=== PATIENT | female | born 1950 | race Caucasian/White ===

== ENCOUNTER → 2018-04-03 11:13 | Outpatient (CLI) | payer MEDICARE, OTHER, SELFPAY ==
--- NOTE | 2018-04-03 10:59 | DI.REPORT_ITS ---
SYMPTOM/DIAGNOSIS: B/L KNEE PAIN BILATERAL KNEES: Weightbearing AP and lateral views were performed. Right knee: There is mild narrowing of the medial femoral tibial joint space. There is spurring from the lateral femoral condyle and lateral tibial plateau. There is mild spurring at the articular aspect of the patella. Left knee: There is moderate narrowing of the lateral femoral tibial joint space, periarticular spurring and sclerosis. A few subchondral cysts are seen. The medial joint space is well maintained. There is mild scarring at the articular aspect of the patella. IMPRESSION: Moderate degenerative changes of the lateral femoral tibial joint of the right knee. Moderate to severe degenerative changes of the lateral femoral tibial joint of the left knee.
== END ==
PROVIDERS: PCP General Practice; Visit Provider Physician Assistant
DX: M25.561 Pain in right knee (principal); M25.562 Pain in left knee; M17.0 Bilateral primary osteoarthritis of knee; G89.29 Other chronic pain
CPT/HCPCS: 73560 ×2; 20610; 99214; J1040

== ENCOUNTER → 2018-11-05 10:10 | Outpatient (BNVA) | payer MEDICARE, OTHER, SELFPAY | PROVIDERS: PCP General Practice; Referring Provider General Practice; Visit Provider Orthopaedic Surgery | DX: M17.11 Unilateral primary osteoarthritis, right knee (principal) | CPT/HCPCS: 99212; 99213 ==

== ENCOUNTER 2018-12-01 08:19 | Day surgery (SDC) | payer MEDICARE, OTHER, SELFPAY ==
--- NOTE | 2018-11-30 17:58 | POEE_ITS ---
History of Present Illness Chief Complaint: Progressive decreased vision, left eye Narrative: The patient is a 68-year old lady who has previously undergone hyperopic laser vision correction in both eyes with subsequent enhancement, including PRK of the left eye. She has noted progressive decreased vision at both distance and near and significant difficulty with glare and halos at night. On examination she was noted to have a significant nuclear cataract, left eye greater than right with visual acuity of 20/30, but with monocular diplopia. The option of cataract surgery was offered to the patient and she wished to proceed. NOTE: The Chief Complaint, HPI, Past Medical History, Past Surgical History, Fa siddhartha History, Social History, Medications, and complete Ophthalmic Exam with detailed Assessment and Plan have already been documented in the patient's outpatient ophthalmic record and are not covered again in detail here. PFSH Medical History Asthma (Chronic) Cataract (Chronic) GERD (gastroesophageal reflux disease) (Chronic) KIRK (obstructive sleep apnea) (Chronic) Surgical History H/O breast augmentation (Acute) Hx of LASIK (Acute) H/O tubal ligation (Chronic) Family History Mother Dementia Father Penile cancer Sister Breast cancer Brother Diabetes Brother Diabetes Social History Smoking/Tobacco Use Status: Former Tobacco Use Drug use: Never Do you feel safe in your relationship?: Yes Meds Home Medications Medication Instructions Recorded Confirmed Type lorazepam 0.5 mg PO PRN PRN 12/01/14 11/26/18 History Centrum Silver 1 ea PO DAILY 08/02/15 11/26/18 History Coral Calcium 1 ea PO DAILY 08/02/15 11/26/18 History Probiotic 1 ea PO DAILY 08/02/15 11/26/18 History coenzyme Q10 [CoQ-10] 30 mg PO DAILY 08/02/15 11/26/18 History cetirizine [Allergy Relief 10 mg PO DAILY 01/24/17 11/26/18 History (cetirizine)] valacyclovir [Valtrex] 1,000 mg PO PRN PRN #20 tab-cap 03/12/17 11/26/18 History Ca carb-Ca gluc-Mg ox-Mg gluco 1 tab PO DAILY 11/26/18 11/26/18 History [Calcium Magnesium] Electrolyte Suppliment 1 ea PO DAILY 11/26/18 History Pancreat-Bet AUy-zsw-ksjn-pap 1 cap PO DAILY 11/26/18 11/26/18 History [Super Enzyme] omega 6-seb-scm-fish oil [Fish Oil] 1 cap PO DAILY 11/26/18 11/26/18 History Allergies Allergy/AdvReac Type Severity Reaction Status Date / Time No Known Allergies Allergy Unverified 11/05/18 10:18 Exam OCULAR EXAM:: Most recent ocular examination is significant for corrected visual acuity of 20/20 OD, 20/30 OS. Intraocular pressure is 11 OD, 12 OS. Extraocular motility is normal. Pupils equal, round, and reactive without afferent pupillary defect slit-lamp examination is significant for pupils dilating to 6 mm OU. 2+ nuclear cataract OD, 3+ nuclear cataract OS. Dilated funduscopic examination is significant for disc cupping of 0.3 OU with good color. The optic nerves have good perfusion and normal color. The retinal vasculature is normal without significant tortuosity or abnormality. The maculas are normal in appearance with normal contour and foveal reflex appropriate for age. The peripheral retina and vitreous are normal. BRIGHTNESS ACUITY TESTING (BAT):: Brightness acuity testing of the left eye off is 20/30. Low is 20/40. Medium is 20/40. High is 20/60. Assessment and Plan (1) Nuclear sclerotic cataract of left eye: Current visit: No Status: Acute Assessment: Visually significant cataract, left eye. Plan: Cataract extraction with intraocular lens implantation, left eye Note: NOTE:: The details of the planned surgery, including the risks, indications,limitations,expectations,outcome and possible complications were explained to the patient. The patient understands the complications including, but not limited to: infection, hemorrhage, posterior dislocation of the lens or nuclear fragments which may require the intervention of a vitreoretinal surgeon, possible loss of the eye, or from anesthetic complications. The patient has been made aware of the option of not having surgery, that vision following surgery may not be equal to that prior to surgery, and that the planned surgery may not achieve the intended results. Following this discussion, which the patient appeared to understand, the patient wishes to proceed with cataract surgery with lens implantation of the affected eye to improve and maximize vision.
--- NOTE | 2018-11-30 18:00 | W.PM.DSUDISC ---
Discharge Plan Disposition Patient Disposition: HOME Condition: Stable Discharge Details Attending Provider: Irving Molina Primary Care Provider: Tray Marley Home Meds and New Rx's Prescriptions: No Action Centrum Silver 1 EACH tablet 1 ea PO DAILY RF: 0 coenzyme Q10 [CoQ-10] 30 MG capsule 30 mg PO DAILY RF: 0 Probiotic 1 EACH capsule 1 ea PO DAILY RF: 0 valacyclovir [Valtrex] 1,000 MG tablet 1,000 mg PO PRN PRNQty: 20 RF: 2 lorazepam 0.5 MG tablet 0.5 mg PO PRN PRNRF: 0 cetirizine [Allergy Relief (cetirizine)] 10 MG tablet 10 mg PO DAILY RF: 0 Super Enzyme [id number] mg Capsule 1 cap PO DAILY RF: 0 Electrolyte Suppliment 1 ea PO DAILY RF: 0 omega 3-vbs-nmp-fish oil [Fish Oil] 1,000 mg (120 mg-180 mg) Capsule 1 cap PO DAILY RF: 0 Calcium Magnesium 500 mg calcium -250 mg Tablet 1 tab PO DAILY RF: 0 Discharge Instructions Stand Alone Forms: Post-op Topical Cataract, Jamaal Mckeon (DSU) Discharge Orders Discharge Orders: Discharge Order (Routine); Ordered 12/01/18 Ordered By: Irving Molina DS: Diagnosis Discharge Diagnosis (1) Nuclear sclerotic cataract of left eye: Status: Resolved (2) Status post cataract extraction and insertion of intraocular lens of left eye: Status: Chronic
--- NOTE | 2018-11-30 18:03 | PDOC.DSDIS_ITS ---
Discharge Plan Disposition Patient Disposition: HOME Condition: Stable Discharge Details Attending Provider: Irving Molina Primary Care Provider: Tray Marley Home Meds and New Rx's Prescriptions: No Action Centrum Silver 1 EACH tablet 1 ea PO DAILY RF: 0 coenzyme Q10 [CoQ-10] 30 MG capsule 30 mg PO DAILY RF: 0 Probiotic 1 EACH capsule 1 ea PO DAILY RF: 0 valacyclovir [Valtrex] 1,000 MG tablet 1,000 mg PO PRN PRNQty: 20 RF: 2 lorazepam 0.5 MG tablet 0.5 mg PO PRN PRNRF: 0 cetirizine [Allergy Relief (cetirizine)] 10 MG tablet 10 mg PO DAILY RF: 0 Super Enzyme [id number] mg Capsule 1 cap PO DAILY RF: 0 Electrolyte Suppliment 1 ea PO DAILY RF: 0 omega 4-iix-uvw-fish oil [Fish Oil] 1,000 mg (120 mg-180 mg) Capsule 1 cap PO DAILY RF: 0 Calcium Magnesium 500 mg calcium -250 mg Tablet 1 tab PO DAILY RF: 0 Discharge Instructions Stand Alone Forms: Post-op Topical Cataract, Jamaal Mckeon (DSU) Discharge Orders Discharge Orders: Discharge Order (Routine); Ordered 12/01/18 Ordered By: Irving Molina DS: Diagnosis Discharge Diagnosis (1) Nuclear sclerotic cataract of left eye: Status: Resolved (2) Status post cataract extraction and insertion of intraocular lens of left eye: Status: Chronic
--- NOTE | 2018-11-30 18:03 | W.PM.OP ---
Date of service: 12/01/18 Operative Note PRE-OP DIAGNOSIS: Cataract, left eye POST-OP DIAGNOSIS: same PROCEDURE: Cataract extraction using phacoemulsification with intraocular lens implant, left eye SURGEON: Irving Molina ANESTHESIA: MAC and local (sub-tenon's anesthetic infiltration) PATHOLOGY: none sent COMPLICATIONS: None Patient was transported to: same day Patient's condition: stable Implants: Sreedhar [employer] Sreed[employer] / [employer] Tecnis [id number] Indications: Progressive decreased vision due to cataract, left eye Procedure Description: CATARACT SURGERY OPERATIVE REPORT PREOPERATIVE DIAGNOSIS: Nuclear cataract, left eye, symptomatic Status post multiple corneal laser refractive procedures POSTOPERATIVE DIAGNOSIS: Same OPERATION: Cataract extraction using phacoemulsification with posterior chamber intraocular lens implant, left eye. IOL: IOL Jukebox Routeman/Model: [employer] / WESLY AR40e IOL Power: + 21.0 diopters IOL Serial Number: [id number] Optic Diameter: 6.0mm Haptic/Overall Diameter: 13.0mm PHACO INFO: Jonathan KnightHavenon Vision System with OZil and Active Fluidics Cumulative Dispersed Energy (CDE): 16.61 seconds SURGEON: Irving Molina MD, SUSAN ANESTHESIA: Monitored Anesthesia Care (MAC), with local sub-tenon's anesthetic infiltration COMPLICATIONS: None SPECIMENS: None INDICATIONS FOR PROCEDURE: The patient is a 68-year-old lady with history of having undergone hyperopic Lasix in the left eye, followed by PRK. She has developed a significant nuclear cataract in the left eye and desires cataract surgery and attempt to improve and maximize her vision PROCEDURE: The correct surgical eye was identified and marked as the left eye and the pupil was dilated in the preoperative area using mydriatics and cycloplegics. The dilated pupil size was 7.0 mm. Oral sedation was administered in the form of an Imprimis MKO Melt (midazolam 3mg/ketamine 25mg/ondansetron 2mg). The patient was brought to the operating room where cardiopulmonary monitoring was instituted and surgical time-out was performed, confirming the correct operative eye and IOL power. Topical anesthesia was administered and ophthalmic povidone-iodine 5% was instilled into the conjunctival fornices. Lidocaine gel was applied to the cornea and the geoff-ocular area was prepped with Betadine 10% solution and draped in the usual sterile fashion for intraocular surgery, including an aperture drape. A Tegaderm transparent film dressing was cut in half and used to cover the lashes and lid margins. Care was taken to sequester the lashes and lid margins under the Tegaderm dressing. A lid speculum was placed between the lids of the operative eye and the Xiomy-Berna operating microscope was maneuvered into position. Patti scissors were then used to make a conjunctival buttonhole approximately 6mm posterior to the limbus in the inferonasal quadrant. Blunt dissection was carried out to expose bare sclera, and a blunt-tipped sub-tenon?s anesthesia cannula was introduced and passed posteriorly along the globe where non-preserved plain lidocaine was injected into posterior sub-Tenon?s space. A sideport knife was used to make a paracentesis port superior/superiortemporal, and the anterior chamber was filled with Healon GV. A 2.4mm keratome knife was used to create a half-thickness groove at the limbus and then to construct a three-plane near-clear corneal tunnel extending 2.0mm into clear cornea in the temporal position. . A flap was raised on the anterior capsule and capsulorhexis forceps were used to complete a continuous curvilinear capsulorhexis of 5.5 mm. Balanced salt solution was then used to perform cortical cleaving hydrodissection and nuclear hydrodelineation until the lens could be freely rotated within the capsular bag. The lens nucleus was then disassembled and removed within the capsular bag and iris plane using phacoemulsification. Residual cortical material was removed using the 45-degree angled silicone I/A tip with 0.3mm port. The posterior capsule was carefully polished to remove as much residual lens epithelial cells as safely possible. The capsular bag was then inflated and the anterior chamber deepened with viscoelastic. The phaco incision was enlarged slightly the lens implant described above was inserted into the capsular bag using the WESLY [place] Injector. A Kuglen hook was used to dial the IOL into position. Residual viscoelastic was then removed first from posterior to the IOL, then from the anterior chamber using the I/A handpiece. The lens implant was noted to center nicely within the capsular bag. The incisions were stromally hydrated, and the anterior chamber was reformed using BSS. Then 0.4cc of moxifloxacin 1.5mg/ml were injected into the capsular bag and anterior chamber. The incisions were checked with a Weck spear and found to be secure. Several drops of ophthalmic povidone-iodine 5% were then applied to the eye followed by two drops of Imprimis combination gatifloxacin/dexamethasone solution. The drapes were removed and a clear plastic protective eye shield was placed over the eye. The patient was then returned to Same Day Surgery in stable condition.
--- NOTE | 2018-11-30 18:06 | ROE_ITS ---
Date of service: 12/01/18 Operative Note PRE-OP DIAGNOSIS: Cataract, left eye POST-OP DIAGNOSIS: same PROCEDURE: Cataract extraction using phacoemulsification with intraocular lens implant, left eye SURGEON: Irving Molina ANESTHESIA: MAC and local (sub-tenon's anesthetic infiltration) PATHOLOGY: none sent COMPLICATIONS: None Patient was transported to: same day Patient's condition: stable Implants: Sreedhar and Sreedhar Vision / [employer] Tecnis [id number] Indications: Progressive decreased vision due to cataract, left eye Procedure Description: CATARACT SURGERY OPERATIVE REPORT PREOPERATIVE DIAGNOSIS: Nuclear cataract, left eye, symptomatic Status post multiple corneal laser refractive procedures POSTOPERATIVE DIAGNOSIS: Same OPERATION: Cataract extraction using phacoemulsification with posterior chamber intraocular lens implant, left eye. IOL: IOL Imaging Administrator/Model: [employer]Think[employer] / WESLY AR40e IOL Power: + 21.0 diopters IOL Serial Number: [id number] Optic Diameter: 6.0mm Haptic/Overall Diameter: 13.0mm PHACO INFO: Jonathan [employer] Vision System with OZil and Active Fluidics Cumulative Dispersed Energy (CDE): 16.61 seconds SURGEON: Irving Molina MD, SUSAN ANESTHESIA: Monitored Anesthesia Care (MAC), with local sub-tenon's anesthetic infiltration COMPLICATIONS: None SPECIMENS: None INDICATIONS FOR PROCEDURE: The patient is a 68-year-old lady with history of having undergone hyperopic Lasix in the left eye, followed by PRK. She has developed a significant nuclear cataract in the left eye and desires cataract surgery and attempt to improve and maximize her vision PROCEDURE: The correct surgical eye was identified and marked as the left eye and the pupil was dilated in the preoperative area using mydriatics and cycloplegics. The dilated pupil size was 7.0 mm. Oral sedation was administered in the form of an Imprimis MKO Melt (midazolam 3mg/ketamine 25mg/ondansetron 2mg). The patient was brought to the operating room where cardiopulmonary monitoring was instituted and surgical time-out was performed, confirming the correct operative eye and IOL power. Topical anesthesia was administered and ophthalmic povidone-iodine 5% was instilled into the conjunctival fornices. Lidocaine gel was applied to the cornea and the geoff-ocular area was prepped with Betadine 10% solution and draped in the usual sterile fashion for intraocular surgery, including an aperture drape. A Tegaderm transparent film dressing was cut in half and used to cover the lashes and lid margins. Care was taken to sequester the lashes and lid margins under the Tegaderm dressing. A lid speculum was placed between the lids of the operative eye and the Xiomy-Berna operating microscope was maneuv ered into position. Patti scissors were then used to make a conjunctival buttonhole approximately 6mm posterior to the limbus in the inferonasal quadrant. Blunt dissection was carried out to expose bare sclera, and a blunt-tipped sub-tenon?s anesthesia cannula was introduced and passed posteriorly along the globe where non- preserved plain lidocaine was injected into posterior sub-Tenon?s space. A sideport knife was used to make a paracentesis port superior/superiortemporal, and the anterior chamber was filled with Healon GV. A 2.4mm keratome knife was used to create a half-thickness groove at the limbus and then to construct a three-plane near-clear corneal tunnel extending 2.0mm into clear cornea in the temporal position. . A flap was raised on the anterior capsule and capsulorhexis forceps were used to complete a continuous curvilinear capsulorhexis of 5.5 mm. Balanced salt solution was then used to perform cortical cleaving hydrodissection and nuclear hydrodelineation until the lens could be freely rotated within the capsular bag. The lens nucleus was then disassembled and removed within the capsular bag and iris plane using phacoemulsification. Residual cortical material was removed using the 45-degree angled silicone I/A tip with 0.3mm port. The posterior capsule was carefully polished to remove as much residual lens epithelial cells as safely possible. The capsular bag was then inflated and the anterior chamber deepened with viscoelastic. The phaco incision was enlarged slightly the lens implant described above was inserted into the capsular bag using the WESLY [place] Injector. A Kuglen hook was used to dial the IOL into position. Residual viscoelastic was then removed first from posterior to the IOL, then from the anterior chamber using the I/A handpiece. The lens implant was noted to center nicely within the capsular bag. The incisions were stromally hydrated, and the anterior chamber was reformed using BSS. Then 0.4cc of moxifloxacin 1.5mg/ml were injected into the capsular bag and anterior chamber. The incisions were checked with a Weck spear and found to be secure. Several drops of ophthalmic povidone-iodine 5% were then applied to the eye followed by two drops of Imprimis combination gatifloxacin/dexamethasone solution. The drapes were removed and a clear plastic protective eye shield was placed over the eye. The patient was then returned to Same Day Surgery in stable condition.
[2018-12-01 08:44] VITALS: BP 106/65; PULSE 93; RESP 16; TEMP 36.6; O2SAT 95
[2018-12-01] MEDS: Tetracaine 0.5% 4 ML BTL OS ×4 (08:54→09:53)
[2018-12-01] MEDS: Tropicam./Phenyleph. (1/2.5%) 5 ML BTL OS ×3 (08:54→09:04)
[2018-12-01] MEDS: Lidocaine 2% Jelly 6 ML SYR (09:53)
[2018-12-01] MEDS: Povidone-Iodine Ophth 30 ML BTL ×2 (09:53→10:25)
[2018-12-01] MEDS: Balanced Salt Soln.-PLUS 500 ML BAG (10:00)
[2018-12-01] MEDS: Lidocaine 1% Pres-Free 5 ML VIAL (10:00)
[2018-12-01 10:59] VITALS: BP 104/63; PULSE 85; RESP 16; TEMP 36.4; O2SAT 94
== END 2018-12-01 10:58 | disposition home or self-care (01) ==
LOC: SUR 08:20
PROVIDERS: PCP General Practice; Visit Provider Ophthalmology
PROC: (CPT 66984; principal; 2018-12-01 10:30)
DX: H25.12 Age-related nuclear cataract, left eye (principal); Z98.890 Other specified postprocedural states; K21.9 Gastro-esophageal reflux disease without esophagitis; G47.33 Obstructive sleep apnea (adult) (pediatric)
CPT/HCPCS: 66984; V2632

== ENCOUNTER 2018-12-15 07:35 | Day surgery (SDC) | payer MEDICARE, OTHER, SELFPAY ==
--- NOTE | 2018-12-14 15:39 | W.PIPPEYE ---
History of Present Illness Chief Complaint: Progressive decreased vision, right eye Narrative: The patient is a 68-year-old lady with previous history of having undergone bilateral hyperopic Lasix with subsequent enhancement. She has developed significant bilateral nuclear cataracts and desires cataract surgery and attempt to improve and maximize her vision. She underwent cataract surgery in the left eye on 12/01/2018. Regaining uncorrected vision of 20/30 in the left eye. She now presents for cataract surgery in the right eye. NOTE: The Chief Complaint, HPI, Past Medical History, Past Surgical History, Family History, Social History, Medications, and complete Ophthalmic Exam with detailed Assessment and Plan have already been documented in the patient's outpatient ophthalmic record and are not covered again in detail here. [facility] Medical History Asthma (Chronic) Cataract (Chronic) GERD (gastroesophageal reflux disease) (Chronic) KIRK (obstructive sleep apnea) (Chronic) Surgical History Status post cataract extraction and insertion of intraocular lens of left eye (Chronic 12/01/18) H/O breast augmentation (Acute) Hx of LASIK (Acute) H/O tubal ligation (Chronic) Family History Mother Dementia Father Penile cancer Sister Breast cancer Brother Diabetes Brother Diabetes Social History Smoking/Tobacco Use Status: Current-Occasional Drug use: Never Do you feel safe in your relationship?: Yes Meds Home Medications Medication Instructions Recorded Confirmed Type lorazepam 0.5 mg PO PRN PRN 12/01/14 12/01/18 History Centrum Silver 1 ea PO DAILY 08/02/15 12/01/18 History Probiotic 1 ea PO DAILY 08/02/15 12/01/18 History coenzyme Q10 [CoQ-10] 30 mg PO DAILY 08/02/15 12/01/18 History cetirizine [Allergy Relief 10 mg PO DAILY 01/24/17 12/01/18 History (cetirizine)] valacyclovir [Valtrex] 1,000 mg PO PRN PRN #20 tab-cap 03/12/17 12/01/18 History Ca carb-Ca gluc-Mg ox-Mg gluco 1 tab PO DAILY 11/26/18 12/01/18 History [Calcium Magnesium] Electrolyte Suppliment 1 ea PO DAILY 11/26/18 12/01/18 History Pancreat-Bet DRa-gjr-ibcf-pap 1 cap PO DAILY 11/26/18 12/01/18 History [Super Enzyme] omega 6-uwz-aty-fish oil [Fish Oil] 1 cap PO DAILY 11/26/18 12/01/18 History Allergies Allergy/AdvReac Type Severity Reaction Status Date / Time No Known Allergies Allergy Unverified 12/01/18 08:36 Exam OCULAR EXAM:: Most recent ocular examination is significant for best corrected vision of 20/20 OD, 20/30 OS. Intraocular pressure is 11 OD, 12 OS. Extraocular motility is normal. Pupils equal, round, and reactive without afferent pupillary defect slit-lamp examination is significant for pupils dilating to 6 mm OU. 2+ nuclear cataract OD. Well-positioned PCIOL OS with clear posterior capsule. Funduscopic examination is significant for disc cupping of 0.3 OU with normal vessels. The optic nerves have good perfusion and normal color. The retinal vasculature is normal without significant tortuosity or abnormality. The maculas are normal in appearance with normal contour and foveal reflex appropriate for age. The peripheral retina and vitreous are normal. BRIGHTNESS ACUITY TESTING (BAT):: Brightness acuity testing of the right eye off is 20/20. Low is 20/20. Medium is 20/20. High is 20/20. Assessment and Plan (1) Nuclear sclerotic cataract of right eye: Current visit: No Status: Acute Assessment: Visually significant cataract, right eye. Plan: Cataract extraction with intraocular lens implantation, right eye Note: NOTE:: The details of the planned surgery, including the risks, indications,limitations,expectations,outcome and possible complications were explained to the patient. The patient understands the complications including, but not limited to: infection, hemorrhage, posterior dislocation of the lens or nuclear fragments which may require the intervention of a vitreoretinal surgeon, possible loss of the eye, or from anesthetic complications. The patient has been made aware of the option of not having surgery, that vision following surgery may not be equal to that prior to surgery, and that the planned surgery may not achieve the intended results. Following this discussion, which the patient appeared to understand, the patient wishes to proceed with cataract surgery with lens implantation of the affected eye to improve and maximize vision.
--- NOTE | 2018-12-14 15:42 | POEE_ITS ---
History of Present Illness Chief Complaint: Progressive decreased vision, right eye Narrative: The patient is a 68-year-old lady with previous history of having undergone bilateral hyperopic Lasix with subsequent enhancement. She has developed significant bilateral nuclear cataracts and desires cataract surgery a nd attempt to improve and maximize her vision. She underwent cataract surgery in the left eye on 12/01/2018. Regaining uncorrected vision of 20/30 in the left eye. She now presents for cataract surgery in the right eye. NOTE: The Chief Complaint, HPI, Past Medical History, Past Surgical History, Family History, Social History, Medications, and complete Ophthalmic Exam with detailed Assessment and Plan have already been documented in the patient's outpatient ophthalmic record and are not covered again in detail here. [facility] Medical History Asthma (Chronic) Cataract (Chronic) GERD (gastroesophageal reflux disease) (Chronic) KIRK (obstructive sleep apnea) (Chronic) Surgical History Status post cataract extraction and insertion of intraocular lens of left eye (Chronic 12/01/18) H/O breast augmentation (Acute) Hx of LASIK (Acute) H/O tubal ligation (Chronic) Family History Mother Dementia Father Penile cancer Sister Breast cancer Brother Diabetes Brother Diabetes Social History Smoking/Tobacco Use Status: Current-Occasional Drug use: Never Do you feel safe in your relationship?: Yes Meds Home Medications Medication Instructions Recorded Confirmed Type lorazepam 0.5 mg PO PRN PRN 12/01/14 12/01/18 History Centrum Silver 1 ea PO DAILY 08/02/15 12/01/18 History Probiotic 1 ea PO DAILY 08/02/15 12/01/18 History coenzyme Q10 [CoQ-10] 30 mg PO DAILY 08/02/15 12/01/18 History cetirizine [Allergy Relief 10 mg PO DAILY 01/24/17 12/01/18 History (cetirizine)] valacyclovir [Valtrex] 1,000 mg PO PRN PRN #20 tab-cap 03/12/17 12/01/18 History Ca carb-Ca gluc-Mg ox-Mg gluco 1 tab PO DAILY 11/26/18 12/01/18 History [Calcium Magnesium] Electrolyte Suppliment 1 ea PO DAILY 11/26/18 12/01/18 History Pancreat-Bet BZq-xkt-tcvc-pap 1 cap PO DAILY 11/26/18 12/01/18 History [Super Enzyme] omega 0-hij-gnk-fish oil [Fish Oil] 1 cap PO DAILY 11/26/18 12/01/18 History Allergies Allergy/AdvReac Type Severity Reaction Status Date / Time No Known Allergies Allergy Unverified 12/01/18 08:36 Exam OCULAR EXAM:: Most recent ocular examination is significant for best corrected vision of 20/20 OD, 20/30 OS. Intraocular pressure is 11 OD, 12 OS. Extraocular motility is normal. Pupils equal, round, and reactive without afferent pupillary defect slit-lamp examination is significant for pupils dilating to 6 mm OU. 2+ nuclear cataract OD. Well-positioned PCIOL OS with clear posterior capsule. Funduscopic examination is significant for disc cupping of 0.3 OU with normal vessels. The optic nerves have good perfusion and normal color. The retinal vasculature is normal without significant tortuosity or abnormality. The maculas are normal in appearance with normal contour and foveal reflex appropriate for age. The peripheral retina and vitreous are normal. BRIGHTNESS ACUITY TESTING (BAT):: Brightness acuity testing of the right eye off is 20/20. Low is 20/20. Medium is 20/20. High is 20/20. Assessment and Plan (1) Nuclear sclerotic cataract of right eye: Current visit: No Status: Acute Assessment: Visually significant cataract, right eye. Plan: Cataract extraction with intraocular lens implantation, right eye Note: NOTE:: The details of the planned surgery, including the risks, indications,limitations,expectations,outcome and possible complications were explained to the patient. The patient understands the complications including, but not limited to: infection, hemorrhage, posterior dislocation of the lens or nuclear fragments which may require the intervention of a vitreoretinal surgeon, possible loss of the eye, or from anesthetic complications. The patient has been made aware of the option of not having surgery, that vision following surgery may not be equal to that prior to surgery, and that the planned surgery may not achieve the intended results. Following this discussion, which the patient appeared to understand, the patient wishes to proceed with cataract surgery with lens implantation of the affected eye to improve and maximize vision.
[2018-12-15 08:05] VITALS: BP 127/70; PULSE 80; RESP 16; TEMP 36.4; O2SAT 96
[2018-12-15] MEDS: Tropicam./Phenyleph. (1/2.5%) 5 ML BTL OD ×3 (08:13→08:24)
[2018-12-15] MEDS: Tetracaine 0.5% 4 ML BTL OD ×4 (08:13→09:03)
--- NOTE | 2018-12-15 08:59 | W.PM.DSUDISC ---
Discharge Plan Disposition Patient Disposition: HOME Condition: Stable Discharge Details Attending Provider: Irving Molina Primary Care Provider: Tray Marley Home Meds and New Rx's Prescriptions: No Action Centrum Silver 1 EACH tablet 1 ea PO DAILY RF: 0 coenzyme Q10 [CoQ-10] 30 MG capsule 30 mg PO DAILY RF: 0 Probiotic 1 EACH capsule 1 ea PO DAILY RF: 0 valacyclovir [Valtrex] 1,000 MG tablet 1,000 mg PO PRN PRNQty: 20 RF: 2 lorazepam 0.5 MG tablet 0.5 mg PO PRN PRNRF: 0 cetirizine [Allergy Relief (cetirizine)] 10 MG tablet 10 mg PO DAILY RF: 0 Super Enzyme [id number] mg Capsule 1 cap PO DAILY RF: 0 Electrolyte Suppliment 1 ea PO DAILY RF: 0 omega 0-okj-ayf-fish oil [Fish Oil] 1,000 mg (120 mg-180 mg) Capsule 1 cap PO DAILY RF: 0 Calcium Magnesium 500 mg calcium -250 mg Tablet 1 tab PO DAILY RF: 0 Discharge Instructions Stand Alone Forms: Post-op Topical Cataract, Jamaal Mckeon (DSU) Discharge Orders Discharge Orders: Discharge Order (Routine); Ordered 12/15/18 Ordered By: Irving Molina DS: Diagnosis Discharge Diagnosis (1) Nuclear sclerotic cataract of right eye: Status: Resolved (2) Status post cataract extraction and insertion of intraocular lens of right eye: Status: Chronic
[2018-12-15] MEDS: Povidone-Iodine Ophth 30 ML BTL (09:03)
[2018-12-15] MEDS: Lidocaine 2% Jelly 6 ML SYR (09:03)
[2018-12-15] MEDS: Balanced Salt Soln.-PLUS 500 ML BAG (09:07)
[2018-12-15] MEDS: Lidocaine 1% Pres-Free 5 ML VIAL (09:09)
--- NOTE | 2018-12-15 09:39 | W.PM.OP ---
Date of service: 12/15/18 Time of Service: 09:40 Operative Note PRE-OP DIAGNOSIS: Cataract, right eye PROCEDURE: Cataract extraction using phacoemulsification with intraocular lens implant, right eye SURGEON: Irving Molina ANESTHESIA: MAC and local (sub-tenon's anesthetic infiltration) ESTIMATED BLOOD LOSS: 0 PATHOLOGY: none sent COMPLICATIONS: None Patient was transported to: same day Patient's condition: stable Implants: Sreedhar and Sreed[employer] / [employer] Tecnis ZCB00 intraocular lens Indications: Progressive decreased vision due to cataract, right eye Procedure Description: CATARACT SURGERY OPERATIVE REPORT PREOPERATIVE DIAGNOSIS: Nuclear cataract, right eye Status post corneal laser refractive surgery POSTOPERATIVE DIAGNOSIS: Same OPERATION: Cataract extraction using phacoemulsification with posterior chamber intraocular lens implant, right eye. 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 She has developed symptomatic nuclear cataract in both eyes and desires cataract surgery and attempt to improve and maximize her vision. She has already undergone cataract surgery in her left eye. She now presents for cataract surgery of the right eye. PROCEDURE: The correct surgical eye was identified and marked as the right eye and the pupil was dilated in the preoperative area using mydriatics and cycloplegics. The dilated pupil size was 7.0 mm. Oral sedation was administered in the form of an Imprimis MKO Melt (midazolam 3mg/ketamine 25mg/ondansetron 2mg). The patient was brought to the operating room where cardiopulmonary monitoring was instituted and surgical time-out was performed, confirming the correct operative eye and IOL power. Topical anesthesia was administered and ophthalmic povidone-iodine 5% was instilled into the conjunctival fornices. Lidocaine gel was applied to the cornea and the geoff-ocular area was prepped with Betadine 10% solution and draped in the usual sterile fashion for intraocular surgery, including an aperture drape. A Tegaderm transparent film dressing was cut in half and used to cover the lashes and lid margins. Care was taken to sequester the lashes and lid margins under the Tegaderm dressing. A lid speculum was placed between the lids of the operative eye and the Xiomy-Berna operating microscope was maneuvered into position. Patti scissors were then used to make a conjunctival buttonhole approximately 6mm posterior to the limbus in the inferonasal quadrant. Blunt dissection was carried out to expose bare sclera, and a blunt-tipped sub-tenon?s anesthesia cannula was introduced and passed posteriorly along the globe where non-preserved plain lidocaine was injected into posterior sub-Tenon?s space. A sideport knife was used to make a paracentesis port inferiortemporally, and the anterior chamber was filled with Healon GV. A 2.4mm keratome knife was used to create a half-thickness groove at the limbus and then to construct a three-plane near-clear corneal tunnel extending 2.0mm into clear cornea in the superiortemporal position. . A flap was raised on the anterior capsule and capsulorhexis forceps were used to complete a continuous curvilinear capsulorhexis of 5.0 mm. Balanced salt solution was then used to perform cortical cleaving hydrodissection and nuclear hydrodelineation until the lens could be freely rotated within the capsular bag. The lens nucleus was then disassembled and removed within the capsular bag and iris plane using phacoemulsification. Residual cortical material was removed using the I/A handpiece. The posterior capsule was carefully polished to remove as much residual lens epithelial cells as safely possible. The capsular bag was then inflated and the anterior chamber deepened with viscoelastic. The lens implant described above was inserted into the capsular bag using the WESLY [place] Injector. A Kuglen hook was used to dial the IOL into position. Residual viscoelastic was then removed first from posterior to the IOL, then from the anterior chamber using the I/A handpiece. The lens implant was noted to center nicely within the capsular bag. The incisions were stromally hydrated, and the anterior chamber was reformed using BSS. Then 0.4cc of moxifloxacin 1.5mg/ml were injected into the capsular bag and anterior chamber. The incisions were checked with a Weck spear and found to be secure. Several drops of ophthalmic povidone-iodine 5% were then applied to the eye followed by two drops of Imprimis combination gatifloxacin/dexamethasone solution. The drapes were removed and a clear plastic protective eye shield was placed over the eye. The patient was then returned to Same Day Surgery in stable condition.
--- NOTE | 2018-12-15 09:43 | ROE_ITS ---
Date of service: 12/15/18 Time of Service: 09:40 Operative Note PRE-OP DIAGNOSIS: Cataract, right eye PROCEDURE: Cataract extraction using phacoemulsification with intraocular lens implant, right eye SURGEON: Irving Molina ANESTHESIA: MAC and local (sub-tenon's anesthetic infiltration) ESTIMATED BLOOD LOSS: 0 PATHOLOGY: none sent COMPLICATIONS: None Patient was transported to: same day Patient's condition: stable Implants: Sreedhar and Sreedhar Vision / [employer] Tecnis ZCB00 intraocular lens Indications: Progressive decreased vision due to cataract, right eye Procedure Description: CATARACT SURGERY OPERATIVE REPORT PREOPERATIVE DIAGNOSIS: Nuclear cataract, right eye Status post corneal laser refractive surgery POSTOPERATIVE DIAGNOSIS: Same OPERATION: Cataract extraction using phacoemulsification with posterior chamber intraocular lens implant, right eye. IOL: IOL Lard Maker/Model: J&J Vision / WESLY Tecnis ZCB00 IOL Power: + 24.0 diopters IOL Serial Number: [id number] Optic Diameter: 6.0mm Haptic/Overall Diameter: 13.0mm PHACO INFO: Jonathan [employer] Vision System with OZil and Active Fluidics Cumulative Dispersed Energy (CDE): 14.34 seconds SURGEON: Irving Molina MD, SUSAN ANESTHESIA: Monitored Anesthesia Care (MAC), with local sub-tenon's anesthetic infiltration COMPLICATIONS: None SPECIMENS: None INDICATIONS FOR PROCEDURE: The patient is a 68-year-old lady with history of having undergone multiple corneal laser refractive surgery's including hyperopic Lasix. She has developed symptomatic nuclear cataract in both eyes and desires cataract surgery and attempt to improve and maximize her vision. She has already undergone cataract surgery in her left eye. She now presents for cataract surgery of the right eye. PROCEDURE: The correct surgical eye was identified and marked as the right eye and the pupil was dilated in the preoperative area using mydriatics and cycloplegics. The dilated pupil size was 7.0 mm. Oral sedation was administered in the form of an Imprimis MKO Melt (midazolam 3mg/ketamine 25mg/ondansetron 2mg). The patient was brought to the operating room where cardiopulmonary monitoring was instituted and surgical time-out was performed, confirming the correct operative eye and IOL power. Topical anesthesia was administered and ophthalmic povidone-iodine 5% was instilled into the conjunctival fornices. Lidocaine gel was applied to the cornea and the geoff-ocular area was prepped with Betadine 10% solution and draped in the usual sterile fashion for intraocular surgery, including an aperture drape. A Tegaderm transparent film dressing was cut in half and used to cover the lashes and lid margins. Care was taken to sequester the lashes and lid margins under the Tegaderm dressing. A lid speculum was placed between the lids of the operative eye and the Xiomy-Berna operating microscope was maneuvered into position. Patti scissors were then used to make a conjunctival buttonhole approximately 6mm posterior to the limbus in the inferonasal quadrant. Blunt dissection was carried out to expose bare sclera, and a blunt-tipped sub-tenon?s anesthesia cannula was introduced and passed posteriorly along the globe where non- preserved plain lidocaine was injected into posterior sub-Tenon?s space. A sideport knife was used to make a paracentesis port inferiortemporally, and the anterior chamber was filled with Healon GV. A 2.4mm keratome knife was used to create a half-thickness groove at the limbus and then to construct a three-plane near-clear corneal tunnel extending 2.0mm into clear cornea in the superiortemporal position. . A flap was raised on the anterior capsule and capsulorhexis forceps were used to complete a continuous curvilinear capsulorhexis of 5.0 mm. Balanced salt solution was then used to perform cortical cleaving hydrodissection and nuclear hydrodelineation until the lens could be freely rotated within the capsular bag. The lens nucleus was then disassembled and removed within the capsular bag and iris plane using phacoemulsification. Residual cortical material was removed using the I/A handpiece. The posterior capsule was carefully polished to remove as much residual lens epithelial cells as safely possible. The capsular bag was then inflated and the anterior chamber deepened with viscoelastic. The lens implant described above was inserted into the capsular bag using the WESLY [place] Injector. A Kuglen hook was used to dial the IOL into position. Residual viscoelastic was then removed first from posterior to the IOL, then from the anterior chamber using the I/A handpiece. The lens implant was noted to center nicely within the capsular bag. The incisions were stromally hydrated, and the anterior chamber was reformed using BSS. Then 0.4cc of moxifloxacin 1.5mg/ml were injected into the capsular bag and anterior chamber. The incisions were checked with a Weck spear and found to be secure. Several drops of ophthalmic povidone-iodine 5% were then applied to the eye followed by two drops of Imprimis combination gatifloxacin/dexamethasone solution. The drapes were removed and a clear plastic protective eye shield was placed over the eye. The patient was then returned to Same Day Surgery in stable condition.
[2018-12-15 09:50] VITALS: BP 102/65; PULSE 82; RESP 18; TEMP 36.4; O2SAT 96
== END 2018-12-15 10:00 | disposition home or self-care (01) ==
PROVIDERS: PCP General Practice; Visit Provider Ophthalmology
PROC: (CPT 66984; principal; 2018-12-15 09:30)
DX: H25.11 Age-related nuclear cataract, right eye (principal); Z98.42 Cataract extraction status, left eye; Z96.1 Presence of intraocular lens; Z98.890 Other specified postprocedural states; K21.9 Gastro-esophageal reflux disease without esophagitis; G47.33 Obstructive sleep apnea (adult) (pediatric)
CPT/HCPCS: 66984; V2632

== ENCOUNTER 2020-05-31 01:31 | Outpatient (CLI) | payer MEDICARE, OTHER, SELFPAY ==
--- NOTE | 2020-05-31 15:45 | DI.DEXA_ITS ---
EXAM: XR DEXA BONE DENSITY W/WO SYEDA CLINICAL HISTORY: evaluate osteopenia vs osteoporosis, M85.88, gerd, osteopenia TECHNIQUE: COMPARISON: No exams were available for comparison FINDINGS: Lateral Spine Image: Unremarkable. No compression deformities identified. Left hip: Total T-Score: -1.6 Total Z-Score: -0.1 T- and Z-scores: Findings consistent with osteopenia and an increased fracture risk. Lumbar Spine: Total T-Score: -1.0 Total Z-Score: 1.1 T- and Z-scores: Within normal limits. IMPRESSION: No evidence of osteoporosis.
== END 2020-05-31 01:51 ==
PROVIDERS: PCP Student in an Organized Health Care Education/Training Program; Visit Provider Student in an Organized Health Care Education/Training Program
DX: M85.88 Other specified disorders of bone density and structure, other site (principal); K21.9 Gastro-esophageal reflux disease without esophagitis
CPT/HCPCS: 77080

== ENCOUNTER 2020-06-02 02:47 | Outpatient (CLI) | payer MEDICARE, OTHER, SELFPAY ==
--- NOTE | 2020-06-02 08:00 | DI.MAMMO_ITS ---
EXAM: MG MAMMO SCREENING 60 MIN DUR CLINICAL HISTORY: breast cancer screening,H/O BREAST AUGMENTATION,Z12.39,Z98.82 TECHNIQUE: Mammograms were interpreted according to the usual protocol including computer analysis w [employer] CAD system, tomosynthesis and C-view imaging. Implant displaced views were performed in addition to the routine views. COMPARISON: 2014 and 2016 FINDINGS: The breasts are composed of scattered fibroglandular densities, Breast Density category B. No suspicious masses or suspicious microcalcifications are seen. No skin thickening or abnormal axillary lymph nodes are seen. The implants appear intact. There has been no significant change from prior exams. IMPRESSION: BI-RADS Category 1, Negative mammogram Yearly screening mammography is recommended. Breast Density - Category B, scattered fibroglandular densities. A negative radiographic report should not delay biopsy if a dominant or clinically suspicious mass is present. Up to ten percent of cancers are not identified on mammography. A negative report may reinforce clinical impression. Adenosis and dense breasts may obscure an underlying neoplasm. False positive reports average 6 to 10%. Patient will receive a letter notifying them of these results.
== END 2020-06-02 03:07 ==
PROVIDERS: PCP Student in an Organized Health Care Education/Training Program; Visit Provider Student in an Organized Health Care Education/Training Program
DX: Z12.31 Encounter for screening mammogram for malignant neoplasm of breast (principal); Z98.82 Breast implant status
CPT/HCPCS: 77063; 77067

== ENCOUNTER 2020-06-07 01:13 | Outpatient (CLI) | payer MEDICARE, OTHER, SELFPAY ==
[2020-06-07 09:40] LABS: HCT 41.2 % (36.0-46.0); HGB 13.5 g/dL (11.2-15.7); MCH 29.3 pg (27.0-33.0); MCHC 32.8 % (32.0-36.0); MCV 89.4 fL (80-95); MPV 10.3 fL (8.0-11.0); Platelet Count 172 10^3/uL (130-400); RBC 4.61 10^6/uL (3.93-5.22); RDW 13.2 % (11.7-14.6); RDW-SD 43.7 fL; WBC 4.73 10^3/uL (4.4-10.8)
[2020-06-07 13:42] LABS: ALT 20 U/L (14-59); AST 18 U/L (15-37); Albumin 3.5 g/dL (3.4-5.0); Alkaline Phosphatase 66 U/L (46-116); Anion Gap 5.3 mmol/L (3-11); BUN 18 mg/dL (7-18); Bilirubin, Total 0.6 mg/dL (0.2-1.0); CO2 30.7 mmol/L (21.0-32.0); CREATININE 0.96 mg/dL (0.55-1.02); Calcium 8.7 mg/dL (8.5-10.1); Calculated LDL 122 mg/dL (<100); Chloride 106 mmol/L (98-107); Cholesterol 218 mg/dL (<200); Estimated GFR 57.63 (mL/min/1.73m2); Glucose 91 mg/dL (74-106); HDL Cholesterol 84 mg/dL (40-60); Potassium 4.5 mmol/L (3.5-5.1); Sodium 142 mmol/L (136-145); Total Protein 6.4 g/dL (6.4-8.2); Triglyceride 61 mg/dL (<150)
[2020-06-09 05:07] LABS: Vitamin D 25 Total 53.7 ng/ml (30-100)
== END 2020-06-07 01:33 ==
PROVIDERS: PCP Student in an Organized Health Care Education/Training Program; Visit Provider Student in an Organized Health Care Education/Training Program
DX: I10 Essential (primary) hypertension (principal); E86.0 Dehydration; M85.80 Other specified disorders of bone density and structure, unspecified site
CPT/HCPCS: 36415; 80053; 80061; 82306; 85027

== ENCOUNTER → 2021-07-31 13:43 | Outpatient (BNVA) | payer MEDICARE, OTHER, SELFPAY | PROVIDERS: PCP Student in an Organized Health Care Education/Training Program; Referring Provider Student in an Organized Health Care Education/Training Program; Visit Provider Student in an Organized Health Care Education/Training Program | DX: M17.11 Unilateral primary osteoarthritis, right knee (principal); M25.562 Pain in left knee; M17.12 Unilateral primary osteoarthritis, left knee | CPT/HCPCS: 20610; 99213; J1040 ==

== ENCOUNTER 2022-01-05 00:37 | Emergency (ER) | payer MEDICARE, OTHER, SELFPAY ==
[2022-01-05] VITALS (19 sets, daily range): BP systolic 90–105; BP diastolic 67–74; PULSE 69–89; RESP 9–22; TEMP 36.7; O2SAT 94–96
--- NOTE | 2022-01-05 01:15 | RT.EKG_ITS ---
APPROVED REPORT Exam: Resting ECG Reason for Exam: epigastric discomfort Patient Location: E HR:78 bpm ECG Measurements Heart Rate 78 AXIS NM 151 P 78 QRSd 126 QRS 40 QT 387 T 22 QTc 437 Conclusion Sinus rhythm...normal P axis, V-rate 60- 99 Atrial premature complexes...SV complexes w/ short R-R intvls Probable left atrial enlargement...P >50mS, <-0.10mV V1 IVCD, consider RBBB...QRSd>120mS, terminal axis(90,270)
[2022-01-05] MEDS: diazePAM 5 MG TAB PO (01:49)
[2022-01-05] MEDS: Normal Saline 500 ML 1000 ML IV (01:50)
[2022-01-05 02:01] LABS: Abs Immature Grans 0.02 10^3/uL (0.0-0.06); Absolute Basophil Count 0.07 10^3/uL (0.0-0.2); Absolute Eosinophil Count 0.25 10^3/uL (0.0-0.7); Absolute Lymphocyte Count 1.61 10^3/uL (1.2-3.4); Absolute Neutrophil Count 3.49 10^3/uL (1.2-6.7); Basophils % 1.1; Eosinophils % 4.1; HCT 40.5 % (36.0-46.0); HGB 13.3 g/dL (11.2-15.7); Immature Grans % 0.3; Lymphocytes % 26.2; MCH 28.9 pg (27.0-33.0); MCHC 32.8 % (32.0-36.0); MCV 88 fL (80-95); MPV 10.2 fL (8.0-11.0); Monocytes % 11.4; Neutrophils % 56.9; Platelet Count 175 10^3/uL (130-400); RDW 12.7 % (11.7-14.6); RDW-SD 40.9 fL; WBC 6.14 10^3/uL (4.4-10.8)
--- NOTE | 2022-01-05 02:18 | ED.GENADUL_ITS ---
Discharge Plan Disposition Patient Disposition: HOME Condition: Stable Discharge Details Clinical Impression: Chills, Chest discomfort, Anxiety Primary Care Provider: Meghan Padilla ED Provider: Jaron Singletary Home Meds and New Rx's Prescriptions: Continued fluticasone propionate 50 mcg/actuation spray,suspension 1 spray MARLENY DAILY 0RF Rx Instructions: administer into each nostril cholecalciferol (vitamin D3) 75 mcg (3,000 unit) tablet 1,000 unit PO DAILY 0RF B12 Active 1,000 mcg tablet,chewable 500 mcg PO DAILY 0RF vitamin K2 40 mcg tablet 100 mcg PO DAILY 0RF Citracal-D3 Maximum Plus 325 mg-12.5 mcg -2.75 mg tablet 1 tab PO DAILY 0RF Rx Instructions: 1300mg calcium/ 2000 D-3 valacyclovir [Valtrex] 1 gram tablet 1,000 mg PO PRN MDD 2g PRN (Reason: hsv outbreak) Qty: 20 2RF omeprazole magnesium [Prilosec OTC] 20 mg tablet,delayed release (DR/EC) 20 mg PO DAILY Qty: 90 3RF Centrum Silver 1 EACH tablet 1 ea PO DAILY 0RF Probiotic 1 EACH capsule 1 ea PO DAILY 0RF coenzyme Q10 [CoQ-10] 30 mg capsule 100 mg PO DAILY 0RF lorazepam 0.5 mg tablet 0.5 mg PO DAILY PRN (Reason: anxiety) Qty: 20 0RF cetirizine [Allergy Relief (cetirizine)] 10 MG tablet 10 mg PO DAILY 0RF omega 6-ysa-jkc-fish oil [Fish Oil] 1,000 mg (120 mg-180 mg) Capsule 1 cap PO DAILY 0RF Discharge Instructions Additional Instructions: Your symptoms may be a side effect of recent covid booster. Please rest over the next few days. Please maintain adequate hydration. Please contact your primary care physician to arrange follow-up. Call today. Return to the ER immediately for any worsening or new concerning symptoms. Referrals: Meghan Padilla DO [Primary Care Provider] - Medical Decision Making 71-year-old female presents generally not feeling well 2 days after COVID booster. Patient notes she has had some chills as well as some fatigue and mild epigastric/lower chest discomfort. Considered ACS. Initial EKG was reviewed and interpreted by me: Please see report, right bundle branch block is present. Initial troponin negative. Repeat EKG was reviewed and interpreted by me: Please see report, no significant changes compared to prior. Patient was observed emerge apartment for 1 to 3 hours and had no significant arrhythmia on monitor. Repeat troponin was negative. Labs reviewed and no significant electrolyte abnormalities. CBC normal. Patient was given Valium for anxiety. She notes she has been prescribed Valium in the past for anxiety disorder. She was reassessed and had significant improvement. Plan for discharge with outpatient follow-up. Disposition decision was made weighing the risks and benefits of hospitalization versus outpatient treatment, the risk for further decompensation, and the patient's wishes. The patient was stable and requested discharge. Prior to discharge, my usual and customary return precautions were reviewed with the patient - this included follow-up instructions and reason to return to the emergency department if condition worsens, does not improve as expected, or other new concerns arise. Lab Data Lab results reviewed: Yes I reviewed the patient's lab results. Labs: Laboratory Tests Range/Units 01/05/22 01/05/22 01/05/22 01:15 01:15 03:04 WBC (4.4-10.8) 10^3/uL 6.14 RBC (3.93-5.22) 10^6/uL 4.60 Hgb (11.2-15.7) g/dL 13.3 Hct (36.0-46.0) % 40.5 MCV (80-95) fL 88 MCH (27.0-33.0) pg 28.9 MCHC (32.0-36.0) % 32.8 RDW (11.7-14.6) % 12.7 Plt Count (130-400) 10^3/uL 175 MPV (8.0-11.0) fL 10.2 Immature Gran % 0.3 Neutrophils % 56.9 Lymphocytes % 26.2 Monocytes % 11.4 Eosinophils % 4.1 Basophils % 1.1 Nucleated RBC % (0.0-0.3) % 0.0 Absolute Neutrophils (1.2-6.7) 10^3/uL 3.49 Absolute Lymphocytes (1.2-3.4) 10^3/uL 1.61 Absolute Monocytes (0.1-0.8) 10^3/uL 0.70 Absolute Eosinophils (0.0-0.7) 10^3/uL 0.25 Absolute Basophils (0.0-0.2) 10^3/uL 0.07 Sodium (136-145) mmol/L 138 Potassium (3.5-5.1) mmol/L 3.9 Chloride (98-107) mmol/L 102 Carbon Dioxide (21.0-32.0) mmol/L 26.1 Anion Gap (3-11) mmol/L 9.9 BUN (7-18) mg/dL 21 H Creatinine (0.55-1.02) mg/dL 1.1 H Estimated GFR/1.73 m2 (mL/min/1.73m2) 48.96 Glucose (74-106) mg/dL 95 Calcium (8.5-10.1) mg/dL 8.7 Magnesium (1.8-2.4) mg/dL 2.2 Total Bilirubin (0.2-1.0) mg/dL 0.4 Cancelled Conjugated Bilirubin Cancelled AST (15-37) U/L 17 Cancelled ALT (14-59) U/L 20 Cancelled Alkaline Phosphatase (46-116) U/L 73 Cancelled Troponin I (<or=60) ng/L < 50 Total Protein (6.4-8.2) g/dL 6.9 Cancelled Albumin (3.4-5.0) g/dL 3.8 Cancelled Range/Units 01/05/22 04:10 WBC (4.4-10.8) 10^3/uL RBC (3.93-5.22) 10^6/uL Hgb (11.2-15.7) g/dL Hct (36.0-46.0) % MCV (80-95) fL MCH (27.0-33.0) pg MCHC (32.0-36.0) % RDW (11.7-14.6) % Plt Count (130-400) 10^3/uL MPV (8.0-11.0) fL Immature Gran % Neutrophils % Lymphocytes % Monocytes % Eosinophils % Basophils % Nucleated RBC % (0.0-0.3) % Absolute Neutrophils (1.2-6.7) 10^3/uL Absolute Lymphocytes (1.2-3.4) 10^3/uL Absolute Monocytes (0.1-0.8) 10^3/uL Absolute Eosinophils (0.0-0.7) 10^3/uL Absolute Basophils (0.0-0.2) 10^3/uL Sodium (136-145) mmol/L Potassium (3.5-5.1) mmol/L Chloride (98-107) mmol/L Carbon Dioxide (21.0-32.0) mmol/L Anion Gap (3-11) mmol/L BUN (7-18) mg/dL Creatinine (0.55-1.02) mg/dL Estimated GFR/1.73 m2 (mL/min/1.73m2) Glucose (74-106) mg/dL Calcium (8.5-10.1) mg/dL Magnesium (1.8-2.4) mg/dL Total Bilirubin (0.2-1.0) mg/dL Conjugated Bilirubin AST (15-37) U/L ALT (14-59) U/L Alkaline Phosphatase (46-116) U/L Troponin I (<or=60) ng/L < 50 Total Protein (6.4-8.2) g/dL Albumin (3.4-5.0) g/dL HPI General Mode of arrival: ambulatory . Date/Time Provider Initiated Documentation: 01/05/22 00:46 . Limitations to Documentation: no limitations . Information obtained by: patient . HPI Narrative: 71-year-old female with multiple medical problems presents feeling generally unwell over the past day. She notes she received her COVID vaccine booster on 01/01/2022 and has been feeling ill with nausea, epigastric abdominal discomfort, and now with chills tonight. Patient notes that she reviewed the potential side effects of the vaccine and concerned that she may be experiencing side effects. She is quite anxious. Symptoms are moderate. No modifiers. Related Data Home Medications Medication Instructions Recorded Confirmed Lactobacillus acidophilus 10 1 ea PO DAILY 08/02/15 01/05/22 billion cell capsule (Probiotic) myhpahuk-gyg-ercsm acid 0.4 1 ea PO DAILY 08/02/15 01/05/22 mg-lycopene 300 mcg-lutein 250 mcg tablet (Centrum Silver) cetirizine 10 mg tablet (Allergy 10 mg PO DAILY 01/24/17 01/05/22 Relief (cetirizine)) omega 1-kdr-iwm-fish oil 1,000 mg 1 cap PO DAILY 11/26/18 01/05/22 (120 mg-180 mg) capsule (Fish Oil) calcium 325 mg-vit D3 12.5 1 tab PO DAILY 04/29/20 01/05/22 mcg-zinc 2.75 hc-ydgqns-lwvkrdgmh tablet (Citracal-D3 Maximum Plus) cholecalciferol (vitamin D3) 75 1,000 unit PO DAILY tab 04/29/20 01/05/22 mcg (3,000 unit) tablet coenzyme Q10 30 mg capsule (CoQ-10) 100 mg PO DAILY cap 04/29/20 01/05/22 fluticasone propionate 50 1 spray MARLENY DAILY 04/29/20 01/05/22 mcg/actuation nasal spray,suspension mecobalamin (vitamin B12) 1,000 500 mcg PO DAILY tab 04/29/20 01/05/22 mcg chewable tablet (B12 Active) vitamin K2 40 mcg tablet 100 mcg PO DAILY tab 04/29/20 01/05/22 omeprazole magnesium 20 mg 20 mg PO DAILY #90 tab 05/02/20 01/05/22 tablet,delayed release (Prilosec OTC) valacyclovir 1 gram tablet 1,000 mg PO PRN PRN #20 tab-cap 05/02/20 01/05/22 (Valtrex) MDD 2g lorazepam 0.5 mg tablet 0.5 mg PO DAILY PRN #20 tab 07/01/20 01/05/22 Previous Rx's Medication Instructions Recorded omeprazole magnesium 20 mg 20 mg PO DAILY #90 tab 05/02/20 tablet,delayed release (Prilosec OTC) valacyclovir 1 gram tablet 1,000 mg PO PRN PRN #20 tab-cap 05/02/20 (Valtrex) MDD 2g lorazepam 0.5 mg tablet 0.5 mg PO DAILY PRN #20 tab 07/01/20 Allergies Allergy/AdvReac Type Severity Reaction Status Date / Time No Known Allergies Allergy Verified 07/31/21 13:47 General Stated Complaint: Abd Prob DANAE: 4 Review of Systems Constitutional Constitutional: Reports chills and Denies fever(s) ENT Ears, Nose, Mouth, and Throat: Reports dizziness Cardiovascular Cardiovascular: Denies chest pain Gastrointestinal Gastrointestinal: Reports as per HPI Neurologic Neurologic: Reports dizziness Psychiatric Psychiatric: Reports anxiety PFSH All Active Problems (Updated 01/05/22 @ 04:11 by Jaron Singletary MD) Chills (Acute) Chest discomfort (Acute) Anxiety (Chronic) Unilateral primary osteoarthritis, left knee (Acute) Allergic rhinitis due to allergen (Acute) Pt does not have asthma. H/O breast augmentation (Acute) Family history of diabetes mellitus (Acute) All 3 siblings Laryngospasm (Acute) Chronic rhinitis (Acute) Post-nasal drip (Acute) Status post cataract extraction and insertion of intraocular lens of right eye (Chronic 12/15/18) KIRK (obstructive sleep apnea) (Chronic) Re-started CPAP (2019) .. Hx not using CPAP Machine GERD (gastroesophageal reflux disease) (Chronic) Status post cataract extraction and insertion of intraocular lens of left eye (Chronic 12/01/18) History of photorefractive keratectomy (PRK) (Chronic) S/P LASIK surgery of both eyes (Chronic) Osteopenia (Acute 08/02/15) Herpes labialis (Acute 08/02/15) Degenerative joint disease of right knee (Chronic) Medical History Asthma RAD Cataract GERD (gastroesophageal reflux disease) KIRK (obstructive sleep apnea) Dx 2011 CPAP 2020 Managed by Melissa Briceño Surgical History H/O tubal ligation Hx of LASIK Family History Mother , in 2019 Dementia Alzheimers disease Father Penile cancer Substance abuse Sister Breast cancer Diabetes Bipolar disorder Brother Diabetes Anxiety Brother Diabetes Substance abuse Anxiety Maternal Grandfather Diabetes Paternal Aunt Diabetes Maternal Grandmother Bipolar disorder Social History Smoking/Tobacco Use Status: Never Tobacco: How many years used: 12 Smoking risk assessment performed?: Yes Alcohol Intake: current Alcohol Intake frequency: other Alcohol type: wine Drug use: Never Substance use type: marijuana Adopted: No Caregiver/Support person: No Foster care: No Household members: spouse and family Housing: house Do you need help understanding health information?: Never current occupation: Retired Sexually active: No Do you think of yourself as: straight/heterosexual Current gender identity: female Do you feel safe at home: Yes Do you feel safe in your relationship?: Yes Exam Const General: cooperative HENMT Mouth: moist mucous membranes Eyes Conjunctivae: normal conjunctivae Sclera: normal sclerae Neck Neck: supple Thyroid: thyroid normal Resp Auscultation: clear to auscultation bilaterally, no rales, no rhonchi and no wheezes Cardio Rate: regular rate and not tachycardic Rhythm: regular rhythm GI Palpation: soft, not firm, no guarding, no masses, not rigid and nontender Skin General skin exam: no rashes or lesions noted Neuro General: patient alert, patient awake, patient oriented x3 and tone normal Cognition: normal cognition Motor: strength 5/5 throughout Sensory Exam: no sensory deficits noted Extrem General: no edema Psych Appearance: grossly normal Mental Status: mental status grossly normal Mood: anxious mood Affect: anxious affect Attitude: cooperative Course Vital Signs Vital signs: Vital Signs Temperature 36.7 C 01/05/22 00:50 Pulse 89 01/05/22 00:50 Respiratory Rate 20 01/05/22 00:50 Blood Pressure 90/67 L 01/05/22 00:50 Pulse Oximetry 95 01/05/22 00:50 Temperature 36.7 C 01/05/22 00:50 Temperature Source Oral 01/05/22 00:50 Pulse 89 01/05/22 00:50 Respiratory Rate 20 01/05/22 00:50 Respiratory Effort 01/05/22 00:58 Blood Pressure 90/67 L 01/05/22 00:50 Pulse Oximetry 95 01/05/22 00:50 Oxygen Delivery Method Room Air 01/05/22 00:50 Oxygen Flow Rate 0 01/05/22 00:50 Pain Level 0 01/05/22 00:50 PAWSS Have you Been Recently Intoxicated or Drunk Within the Last 30 days?: No Have you Ever Experienced Previous Episodes of Alcohol Withdrawal?: No Have you ever Experienced Withdrawal Seizures?: No Have you ever Experienced Delirium Tremens(DT)s?: No Have you ever undergone Alcohol Rehabilitation Treatment (i.e, inpt ot outpatient treatment programs)?: No Have you ever Experienced Blackouts?: No Have you ever Combined Alcohol with other Downers within the last 90 days?: No Have you ever Combined Alcohol with any other Substance of Abuse during the last 90 days?: No Positive Blood Alcohol level on Presentation? [PCS.BAL]: No Evidence of Increased Autonomic Activity (i.e. HR>120, tremor, sweating, agitation, nausea)?: No Result: 0
[2022-01-05 02:23] LABS: ALT 20 U/L (14-59); AST 17 U/L (15-37); Albumin 3.8 g/dL (3.4-5.0); Alkaline Phosphatase 73 U/L (46-116); Anion Gap 9.9 mmol/L (3-11); BUN 21 mg/dL (7-18); Bilirubin, Total 0.4 mg/dL (0.2-1.0); CO2 26.1 mmol/L (21.0-32.0); CREATININE 1.1 mg/dL (0.55-1.02); Calcium 8.7 mg/dL (8.5-10.1); Chloride 102 mmol/L (98-107); Estimated GFR 48.96 (mL/min/1.73m2); Glucose 95 mg/dL (74-106); Magnesium 2.2 mg/dL (1.8-2.4); Potassium 3.9 mmol/L (3.5-5.1); Sodium 138 mmol/L (136-145); Total Protein 6.9 g/dL (6.4-8.2); Troponin I < 50 ng/L (<or=60)
--- NOTE | 2022-01-05 04:30 | RT.EKG_ITS ---
APPROVED REPORT Exam: Resting ECG Reason for Exam: repeat, chest discomfort Patient Location: E HR:80 bpm ECG Measurements Heart Rate 80 AXIS ND 166 P 66 QRSd 123 QRS 40 QT 404 T 7 QTc 467 Conclusion Sinus rhythm...normal P axis, V-rate 60- 99 Atrial premature complex...SV complex w/ short R-R interval IVCD, consider RBBB...QRSd>120mS, terminal axis(90,270)
[2022-01-05 05:16] LABS: Troponin I < 50 ng/L (<or=60)
== END 2022-01-05 05:44 | disposition home or self-care (01) ==
PROVIDERS: Emergency Provider Student in an Organized Health Care Education/Training Program; PCP Student in an Organized Health Care Education/Training Program
DX: R68.83 Chills (without fever) (principal); R07.9 Chest pain, unspecified; F41.9 Anxiety disorder, unspecified; R10.13 Epigastric pain
CPT/HCPCS: 80053; 80076; 93005; 96360; 99284; 83735; 84484; 85025; 93010; 99283

== ENCOUNTER 2022-01-09 10:53 | Outpatient (CLI) | payer MEDICARE, OTHER, SELFPAY ==
--- NOTE | 2022-01-09 10:30 | DI.RAD_ITS ---
Exam(s) XR KNEE LT 3V AP,LAT,MICHAEL EXAM: XR KNEE LT 3V AP,LAT,MICHAEL CLINICAL HISTORY: fu. TECHNIQUE: 2D digital imaging was performed. COMPARISON: CR XR KNEE RT 3V AP,LAT,MICHAEL from 01/09/2022 FINDINGS: 3 views No evidence of fracture although there does appear to be a joint effusion. Moderate narrowing of lat eral compartment noted. Also marginal osteophytes off the lateral compartment. There is no signific ant narrowing of the medial compartment. Also no medial marginal osteophytes. Moderate degenerative changes are noted in the patellofemoral compartment. Bone density normal. No osseous lesions. IMPRESSION: Degenerative changes, most prominent in the lateral patellofemoral compartments. DATA REPOSITORY: RADIATION DOSE DELIVERED:
--- NOTE | 2022-01-09 10:30 | DI.RAD_ITS ---
Exam(s) XR KNEE RT 3V AP,LAT,MICHAEL EXAM: XR KNEE RT 3V AP,LAT,MICHAEL CLINICAL HISTORY: fu. TECHNIQUE: 2D digital imaging was performed. COMPARISON: CR KNEES BILAT AP LATERALS from 04/03/2018 FINDINGS: 3 views No evidence fracture although there is a joint effusion noted, as was also present April 2018. Mode rate narrowing of the lateral compartment is again noted. Preserved height of the medial compartment is again noted. Moderate degenerative changes in the patellofemoral compartment noted but has progr essed from previous. IMPRESSION: Degenerative changes in the lateral and patellofemoral compartments with some progression when compar ed to 2018. Joint effusion again noted. DATA REPOSITORY: RADIATION DOSE DELIVERED:
== END 2022-01-09 10:54 | disposition home or self-care (01) ==
LOC: DIORS 10:53
PROVIDERS: PCP Student in an Organized Health Care Education/Training Program; Referring Provider Student in an Organized Health Care Education/Training Program; Visit Provider Physician Assistant Surgical
DX: M17.11 Unilateral primary osteoarthritis, right knee; M17.12 Unilateral primary osteoarthritis, left knee
CPT/HCPCS: 20610; 73562; J1040

== ENCOUNTER 2022-02-02 07:06 | Emergency (ER) | payer MEDICARE, SELFPAY ==
[2022-02-02 07:10] VITALS: BP 133/111; PULSE 103; RESP 16; TEMP 36.6; O2SAT 94
--- OUTSIDE RECORDS SUMMARY | 2022-02-02 07:30 | XMS_ITS ---
:1950 Author Care Team Providers Name Role Phone MARY ALICE OLMOS DO Primary Care Provider [phone] [facility] OTHER [phone] Allergies Code Code System Name Reaction Severity Status Onset Seasonale (91) ? ? Active ? Medications Name Status Start Date Stop Date ? ? Adult Multivitamin Extra Vitamin D3 200 mcg chewable tablet Comp leted ? 07/27/2020 Take by oral route. albuterol sulfate HFA 90 mcg/actuation aerosol inhaler Completed ? 06/28/2020 Inhale 2 puffs every 4 hours by inhalation route. Ativan 0.5 mg tablet Completed ? 06/28/2020 Take 2 tablets 3 times a day by oral route. cetirizine 10 mg capsule Completed ? 021 Take by oral route. Citracal + Vitamin D Maximum 315 mg calcium-6.25 mcg (250 unit) tablet Active ? Not available Take by oral route. Claritin Completed ? 07/27/2020 CoQ10 10 mg capsule Active ? Not availabl e Take by oral route. CoQ10 SG 100 100 mg-100 unit capsule Completed ? 06/28/2020 Take by oral route. ferrous sulfate 325 mg (65 mg iron) tablet Completed ? 06/28/2020 Take 1 tablet every day by oral route. Fish Oil Active ? Not available Fish Oil 120 mg-180 mg-1000 mg capsule Completed ? 06/28/2020 Take by oral route. inositol Completed ? 07/27/2020 Intrinsi O25-Gykast Completed ? 06/28/2020 magnesium 300 mg tablet Active ? Not avai lable Take by oral route. Multi Vitamin Active ? Not available Prilosec Active ? Not available Probiotic Active ? Not available valacyclovir 500 mg tablet Active ? Not a vailable Take 1 tablet as needed by oral route. zolpidem 5 mg tablet Completed ? 07/27/2020 take 1-2 PO night of sleep study if needed Problems Name Status Onset Date Source ? Obstructive Sleep Apnea Syndrome Active 06/20/2020 ? Chronic Rhinitis Active 06/20/2020 ? Posterior Rhinorrhea Active 06/20/2020 ? Laryngeal Spasm Active 06/20/2020 ? Procedures Date Name Performed by ? 07/13/2020 Polysomnogram Xray [facility] [address] [place], [place] [address] (Work Place) Results Lab Results None recorded. Past Encounters 03/29/2021 Obstructive Sleep Apnea Syndrome Melissa Briceño [employer]: [address] [place] [phone], Ph. 09/28/2020 Obstructive Sleep Apnea Syndrome Melissa Briceño [employer] OFFICER: [address] [place] [phone], Ph. Social History Tobacco Smoking Status Former Smoker Notes: 2015 Vaccine List None recorded. Plan of Care Reminders Provider Appointments None recorded. ? ? Lab None recorded. ? ? Referral None recorded. ? ? Procedures None recorded. ? ? Surgeries None recorded. ? ? Imaging None recorded. ? ? Vitals 03/29/2021 11:30AM Office 30 Height Weight BMI 172.72 cm 87.09 kg 29.2 kg/m2 09/28/2020 01:00PM Office 30 Height Weight BMI 172.72 cm 86.18 kg 28.9 kg/m2 07/27/2020 09:00AM Office 30 Height Weight BMI Blood Pressure 172.72 cm 83.37 kg 27.9 kg/m2 110/70 mm[Hg] 06/28/2020 10:45AM New Patient 45 Height Weight BMI Blood Pressure 172.72 cm 81.69 kg 27.4 kg/m2 120/80 mm[Hg]
--- NOTE | 2022-02-02 07:56 | ED.GENADUL_ITS ---
Discharge Plan Disposition Patient Disposition: HOME Condition: Stable Discharge Details Clinical Impression: Contusion of foot, right Primary Care Provider: Meghan Padilla ED Provider: Jovani Mazariegos Home Meds and New Rx's Prescriptions: Continued cholecalciferol (vitamin D3) 75 mcg (3,000 unit) tablet 1,000 unit PO DAILY vitamin K2 40 mcg tablet 100 mcg PO DAILY Citracal-D3 Maximum Plus 325 mg-12.5 mcg -2.75 mg tablet 1 tab PO DAILY Rx Instructions: 1300mg calcium/ 2000 D-3 valacyclovir [Valtrex] 1 gram tablet 1,000 mg PO PRN MDD 2g PRN (Reason: hsv outbreak) Qty: 20 2RF omeprazole magnesium [Prilosec OTC] 20 mg tablet,delayed release (DR/EC) 20 mg PO DAILY Qty: 90 3RF fluticasone propionate 50 mcg/actuation spray,suspension 1 spray MARLENY DAILY PRN Rx Instructions: administer into each nostril Centrum Silver 1 EACH tablet 1 ea PO DAILY Probiotic 1 EACH capsule 1 ea PO DAILY coenzyme Q10 [CoQ-10] 30 mg capsule 100 mg PO DAILY lorazepam 0.5 mg tablet 0.5 mg PO DAILY PRN (Reason: anxiety) Qty: 20 0RF cetirizine [Allergy Relief (cetirizine)] 10 MG tablet 10 mg PO DAILY Discharge Instructions Instructions: Foot Contusion (ED) Additional Instructions: if pain continues in a week follow up with your primary care provider you can take 1000mg tylenol and 600mg ibuprofen every 6 hours as needed for pain Medical Decision Making 71 yo female comes in with right foot pain. She states she was at the chiropractor yesterday when she rolled her ankle and foot on a step, did not fall or hit head, no loc. Has had pain at the base of the small right toe and some bruising so came here. Denies any pain in the ankle and has full rom. Has tenderness at the base of the small toe with some bruising, normal pulses and sensation, no deformities noted of the toes otherwise. Suspect contusion vs sprain but will xray to evaluate for fracture. xray negative on my read, do not feel she needs to wait for radiology read if they see anything I will call her. She is stable for d/c. Suspect contusion vs sprain. Differential Diagnosis Differential Diagnosis: contusion, sprain, fracture Imaging Data Radiologic Study: Attestation: I personally reviewed and interpreted this imaging study as follows: Imaging: X-Ray My impression: no acute findings on my read of the xray HPI General Mode of arrival: ambulatory . Date/Time Provider Initiated Documentation: 02/02/22 07:19 . Limitations to Documentation: no limitations . Information obtained by: patient . History of Present Illness 71 year old F presents to the emergency department with the chief complaint of right foot/toe pain, described as moderate, Patient started experiencing this day(s) (1) and it has been constant. Rest improves symptom(s), Patient notes no other symptoms.. Patient did receive the following treatments prior to arrival, none Related Data Home Medications Medication Instructions Recorded Confirmed Lactobacillus acidophilus 10 1 ea PO DAILY 08/02/15 02/02/22 billion cell capsule (Probiotic) jgkzsywg-wal-sxekz acid 0.4 1 ea PO DAILY 08/02/15 02/02/22 mg-lycopene 300 mcg-lutein 250 mcg tablet (Centrum Silver) cetirizine 10 mg tablet (Allergy 10 mg PO DAILY 01/24/17 02/02/22 Relief (cetirizine)) calcium 325 mg-vit D3 12.5 1 tab PO DAILY 04/29/20 02/02/22 mcg-zinc 2.75 rj-jvxcjs-pcpuqbqnx tablet (Citracal-D3 Maximum Plus) cholecalciferol (vitamin D3) 75 1,000 unit PO DAILY 04/29/20 02/02/22 mcg (3,000 unit) tablet coenzyme Q10 30 mg capsule (CoQ-10) 100 mg PO DAILY 04/29/20 02/02/22 vitamin K2 40 mcg tablet 100 mcg PO DAILY 04/29/20 02/02/22 omeprazole magnesium 20 mg 20 mg PO DAILY #90 tabs 05/02/20 02/02/22 tablet,delayed release (Prilosec OTC) valacyclovir 1 gram tablet 1,000 mg PO PRN PRN hsv outbreak 05/02/20 02/02/22 (Valtrex) #20 tab-caps lorazepam 0.5 mg tablet 0.5 mg PO DAILY PRN anxiety #20 07/01/20 02/02/22 tabs fluticasone propionate 50 1 spray intranasal DAILY PRN 01/09/22 02/02/22 mcg/actuation nasal spray,suspension Previous Rx's Medication Instructions Recorded omeprazole magnesium 20 mg 20 mg PO DAILY #90 tabs 05/02/20 tablet,delayed release (Prilosec OTC) valacyclovir 1 gram tablet 1,000 mg PO PRN PRN hsv outbreak 05/02/20 (Valtrex) #20 tab-caps lorazepam 0.5 mg tablet 0.5 mg PO DAILY PRN anxiety #20 07/01/20 tabs Allergies Allergy/AdvReac Type Severity Reaction Status Date / Time No Known Allergies Allergy Verified 02/02/22 07:14 General Stated Complaint: Orthopedic DANAE: 4 Review of Systems All systems reviewed & are unremarkable except as noted in HPI and below Constitutional Constitutional: Denies chills, Denies fever(s) and Denies weakness Cardiovascular Cardiovascular: Denies chest pain and Denies dyspnea Respiratory Respiratory: Denies cough and Denies dyspnea Gastrointestinal Gastrointestinal: Denies abdominal pain, Denies nausea and Denies vomiting Neurologic Neurologic: Denies weakness PFSH All Active Problems (Updated 02/02/22 @ 08:17 by Jovani Mazariegos MD) Contusion of foot, right (Acute) Osteoarthritis of left knee (Acute) Chills (Acute) Chest discomfort (Acute) Anxiety (Chronic) Unilateral primary osteoarthritis, left knee (Acute) Allergic rhinitis due to allergen (Acute) Pt does not have asthma. H/O breast augmentation (Acute) Family history of diabetes mellitus (Acute) All 3 siblings Laryngospasm (Acute) Chronic rhinitis (Acute) Post-nasal drip (Acute) Status post cataract extraction and insertion of intraocular lens of right eye (Chronic 12/15/18) KIRK (obstructive sleep apnea) (Chronic) Re-started CPAP (2019) .. Hx not using CPAP Machine GERD (gastroesophageal reflux disease) (Chronic) Status post cataract extraction and insertion of intraocular lens of left eye (Chronic 12/01/18) History of photorefractive keratectomy (PRK) (Chronic) S/P LASIK surgery of both eyes (Chronic) Osteopenia (Acute 08/02/15) Herpes labialis (Acute 08/02/15) Degenerative joint disease of right knee (Chronic) Medical History Asthma RAD Cataract GERD (gastroesophageal reflux disease) KIRK (obstructive sleep apnea) Dx 2011 CPAP 2020 Managed by Melissa Briceño Surgical History H/O tubal ligation Hx of LASIK Family History Mother , in 2019 Dementia Alzheimers disease Father Penile cancer Substance abuse Sister Breast cancer Diabetes Bipolar disorder Brother Diabetes Anxiety Brother Diabetes Substance abuse Anxiety Maternal Grandfather Diabetes Paternal Aunt Diabetes Maternal Grandmother Bipolar disorder Social History Smoking/Tobacco Use Status: Never Tobacco: How many years used: 12 Smoking risk assessment performed?: Yes Alcohol Intake: current Alcohol Intake frequency: other Alcohol type: wine Drug use: Never Substance use type: marijuana Adopted: No Caregiver/Support person: No Foster care: No Household members: spouse and family Housing: house Do you need help understanding health information?: Never current occupation: Retired Sexually active: No Do you think of yourself as: straight/heterosexual Current gender identity: female Do you feel safe at home: Yes Do you feel safe in your relationship?: Yes Exam Const General: no acute distress Orientation: alert HENMT Head: normal to inspection Ears: external ears normal General nose exam: external nose normal Mouth: moist mucous membranes Eyes General: appearance normal, both eyes and all related structures Neck Neck: normal visual inspection Resp Effort & Inspection: normal respiratory effort and able to speak in complete sentences Cardio Rate: regular rate Skin General skin exam: no rashes or lesions noted Neuro General: patient alert and patient oriented x3 Extrem General: full ROM and capillary refill normal Psych Mental Status: mental status grossly normal Course Vital Signs Vital signs: Vital Signs Temperature 36.6 C 02/02/22 07:10 Pulse 103 H 02/02/22 07:10 Respiratory Rate 16 02/02/22 07:10 Blood Pressure 133/111 H 02/02/22 07:10 Pulse Oximetry 94 02/02/22 07:10 Temperature 36.6 C 02/02/22 07:10 Temperature Source Temporal Artery Scan 02/02/22 07:10 Pulse 103 H 02/02/22 07:10 Respiratory Rate 16 02/02/22 07:10 Respiratory Effort Non-Labored 02/02/22 07:13 Blood Pressure 133/111 H 02/02/22 07:10 Blood Pressure Position Sitting 02/02/22 07:10 Pulse Oximetry 94 02/02/22 07:10 Oxygen Delivery Method Room Air 02/02/22 07:10 Oxygen Flow Rate 0 02/02/22 07:10 Pain Level 0 02/02/22 07:15
--- NOTE | 2022-02-02 08:12 | DI.RAD_ITS ---
Exam(s) XR FOOT RT COMPLETE EXAM: XR FOOT RT COMPLETE CLINICAL HISTORY: pain s/p fall yesterday. TECHNIQUE: 2D digital imaging was performed of the right foot. Three images were obtained. AP, obl ique and lateral views were obtained. COMPARISON: No exams were available for comparison FINDINGS: BONES: No acute fracture is present. No bony destructive lesion is seen. There is a small spur at the posterior calcaneus. JOINTS: No dislocation present. Degenerative changes are seen at the 1st MTP joint. SOFT TISSUE: Normal. IMPRESSION: No acute fracture or dislocation. DATA REPOSITORY: RADIATION DOSE DELIVERED:
[2022-02-02 08:24] VITALS: BP 133/86; PULSE 84; RESP 16; TEMP 36.2; O2SAT 98
== END 2022-02-02 08:26 | disposition home or self-care (01) ==
PROVIDERS: Emergency Provider Emergency Medicine; PCP Student in an Organized Health Care Education/Training Program
DX: S90.31XA Contusion of right foot, initial encounter (principal); X50.1XXA Overexertion from prolonged static or awkward postures, initial encounter
CPT/HCPCS: 99283; 73630

== ENCOUNTER → 2022-02-26 13:54 | Outpatient (BNVA) | payer MEDICARE, SELFPAY | PROVIDERS: PCP Student in an Organized Health Care Education/Training Program; Referring Provider Student in an Organized Health Care Education/Training Program; Visit Provider Surgery | DX: K21.9 Gastro-esophageal reflux disease without esophagitis (principal); G47.33 Obstructive sleep apnea (adult) (pediatric) | CPT/HCPCS: 99214; 99242 ==

== ENCOUNTER 2022-03-04 12:17 | Emergency (ER) | payer MEDICARE, SELFPAY ==
[2022-03-04 12:21] VITALS: BP 141/61; PULSE 133; RESP 20; TEMP 36.7; O2SAT 98
--- NOTE | 2022-03-04 12:30 | RT.EKG_ITS ---
APPROVED REPORT Exam: Resting ECG Reason for Exam: tachycardic Patient Location: E HR:97 bpm ECG Measurements Heart Rate 97 AXIS GA 138 P 81 QRSd 109 QRS 0 QT 354 T 19 QTc 450 Conclusion Sinus rhythm. Low voltage, extremity leads. IVCD
--- NOTE | 2022-03-04 12:43 | ED.GENADUL_ITS ---
Discharge Plan Disposition Patient Disposition: HOME Condition: Good Discharge Details Clinical Impression: URI (upper respiratory infection) Primary Care Provider: Meghan Padilla ED Provider: Gem Paiz Home Meds and New Rx's Prescriptions: New benzonatate 100 mg capsule 100 mg PO TID PRN (Reason: cough) Qty: 10 0RF Continued cholecalciferol (vitamin D3) 75 mcg (3,000 unit) tablet 1,000 unit PO DAILY vitamin K2 40 mcg tablet 100 mcg PO DAILY Citracal-D3 Maximum Plus 325 mg-12.5 mcg -2.75 mg tablet 1 tab PO DAILY Rx Instructions: 1300mg calcium/ 2000 D-3 fluticasone propionate 50 mcg/actuation spray,suspension 1 spray MARLENY DAILY PRN Rx Instructions: administer into each nostril albuterol sulfate [ProAir HFA] 90 mcg/actuation HFA aerosol inhaler 2 puff inhalation Q6H PRN (Reason: shortness of breath or wheezing) Qty: 8.5 0RF Rx Instructions: Substitutions or generic OK; dispense as best filled per insurance... valacyclovir [Valtrex] 1 gram tablet 1,000 mg PO PRN MDD 2g PRN (Reason: hsv outbreak) Qty: 20 2RF omeprazole 20 mg capsule,delayed release(DR/EC) 20 mg PO BID Qty: 60 0RF Centrum Silver 1 EACH tablet 1 ea PO DAILY Probiotic 1 EACH capsule 1 ea PO DAILY coenzyme Q10 [CoQ-10] 30 mg capsule 100 mg PO DAILY lorazepam 0.5 mg tablet 0.5 mg PO DAILY PRN (Reason: anxiety) Qty: 20 0RF cetirizine [Allergy Relief (cetirizine)] 10 MG tablet 10 mg PO DAILY Discharge Instructions Instructions: Upper Respiratory Infection (ED) Additional Instructions: Your labs, exam and imaging are reassuring here today. There is no evidence at this time for bacterial pneumonia, bronchitis, COVID, flu. Please continue to encourage hydration. You may use Tylenol and/or ibuprofen as needed for discomfort. Honey may also sore throat and cough. You may use the benzonatate as prescribed to help with cough. If you develop difficulty breathing, shortness of breath, increased pain or other new/worsening symptoms seek care urgently once again. Otherwise, please keep your upcoming appointment with primary care. Referrals: Meghan Padilla, [Primary Care Provider] - Discharge Data Discharge Date/Time-TO BE ENTERED AT DEPARTURE: 03/04/22 16:08 Medical Decision Making Patient is a pleasant 71-year-old female presenting today with chief complaint of shortness of breath in the setting of upper respiratory infection. She reports that her 's been sick for the past few weeks. Unknown underlying illness in the part of her . She reports that she began with a scratchy throat about 5 days ago and then 2 days ago began having cough. She feels that initially this was associated with the postnasal drip but this has been getting deeper. She is now experiencing rattling and feels that she is developing infection in the left lung procedure. She denies any fevers or chills. No GI upset. States that she has had increased shortness of breath that she feels like it is not able to complete a deep breath. Patient has been vaccinated against COVID-19. No recent travel. No rash. No chest pain. On exam, patient appears nontoxic. Normal HEENT exam. Lungs are clear in all santana. Patient does have intermittent dry cough while in the room. Initially, patient was notably quite tachycardic, heart rate downtrending at the time I evaluated her. No lower extremity edema or calf tenderness. Patient has had 2 negative COVID test at home. However, this certainly remains on the differential. Her lungs are clear without suggestion of bronchitis or bacterial pneumonia at this time. However, will obtain chest x-ray to evaluate for her worsening cough as well as associated shortness of breath. Patient not having any chest pain or symptoms with ACS. With the sore throat and cough, as well as known sick contacts, much more suggestive of infectious etiology. With the tachycardia and shortness of breath, I do feel that it would be appropriate to obtain a D-dimer to evaluate for potential PE although I do find this less likely as well. Will give fluid bolus currently and labs, x-ray and reevaluate. FINDINGS: Lungs: Unremarkable. No consolidation. Pleural spaces: Unremarkable. No pleural effusion. No pneumothorax. Heart/Mediastinum: Unremarkable. No cardiomegaly. Bones/joints: Degenerative osseous changes. IMPRESSION: No actue cardiopulmonary abnormalities. Labs reviewed. No leukocytosis, stable H&H. D-dimer is within normal limits. CMP significant for elevated creatinine at 1.3, patient was 1.12 months ago. COVID and other viral reports are pending. Discussed these findings with the patient. As noted above, COVID-19, flu and RSV are pending. Patient appears nontoxic, her heart rate has improved and we will transition her from inpatient bed to waiting room until her COVID results have returned due to acuity of the department Patient is negative for COVID, flu and RSV. Discussed these findings with the patient. Advised likely viral illness. Advised that she continue with supportive care including hydration, Tylenol/ibuprofen. If the cough has been making it difficult for her to sleep, will give prescription for Tessalon Perles. Also discussed with her home remedies that may be beneficial and offered supportive care. Return precautions were discussed. Patient has an appointment this week with her primary care which I encouraged that she keep for reevaluation. All of her questions and concerns were addressed and she is in agreement this plan. HPI General Date/Time Provider Initiated Documentation: 03/04/22 12:22 . Limitations to Documentation: no limitations . Information obtained by: patient and RN notes reviewed . History of Present Illness 71 year old F presents to the emergency department with the chief complaint of cough, SOB, described as moderate and similar to prior episodes (reports multiple episodes of bronchitis historically), and is localized to the chest (feels rattle in left side of chest with coughing). Patient started experiencing this day(s) and it has been constant. No relieving factors improve symptom(s), No exacerbating factors reported . Patient notes cough and shortness of breath; denies chest pain, diaphoresis, fever/chills, headaches, loss of appetite, nausea/vomiting and rash. Patient did receive the following treatments prior to arrival, NSAID Related Data Home Medications Medication Instructions Recorded Confirmed Lactobacillus acidophilus 10 1 ea PO DAILY 08/02/15 03/04/22 billion cell capsule (Probiotic) hserhvhf-pbw-nfgob acid 0.4 1 ea PO DAILY 08/02/15 03/04/22 mg-lycopene 300 mcg-lutein 250 mcg tablet (Centrum Silver) cetirizine 10 mg tablet (Allergy 10 mg PO DAILY 01/24/17 03/04/22 Relief (cetirizine)) calcium 325 mg-vit D3 12.5 1 tab PO DAILY 04/29/20 03/04/22 mcg-zinc 2.75 fh-wyjpyv-kfmtclyvh tablet (Citracal-D3 Maximum Plus) cholecalciferol (vitamin D3) 75 1,000 unit PO DAILY 04/29/20 03/04/22 mcg (3,000 unit) tablet coenzyme Q10 30 mg capsule (CoQ-10) 100 mg PO DAILY 04/29/20 03/04/22 vitamin K2 40 mcg tablet 100 mcg PO DAILY 04/29/20 03/04/22 lorazepam 0.5 mg tablet 0.5 mg PO DAILY PRN anxiety #20 07/01/20 03/04/22 tabs fluticasone propionate 50 1 spray intranasal DAILY PRN 01/09/22 03/04/22 mcg/actuation nasal spray,suspension albuterol sulfate 90 mcg/actuation 2 puff inhalation Q6H PRN 02/08/22 03/04/22 aerosol inhaler (ProAir HFA) shortness of breath or wheezing #8.5 grams valacyclovir 1 gram tablet 1,000 mg PO PRN PRN hsv outbreak 02/08/22 03/04/22 (Valtrex) #20 tab-caps omeprazole 20 mg capsule,delayed 20 mg PO BID #60 caps 02/26/22 03/04/22 release benzonatate 100 mg capsule 100 mg PO TID PRN cough #10 caps 03/04/22 Previous Rx's Medication Instructions Recorded lorazepam 0.5 mg tablet 0.5 mg PO DAILY PRN anxiety #20 07/01/20 tabs albuterol sulfate 90 mcg/actuation 2 puff inhalation Q6H PRN 02/08/22 aerosol inhaler (ProAir HFA) shortness of breath or wheezing #8.5 grams valacyclovir 1 gram tablet 1,000 mg PO PRN PRN hsv outbreak 02/08/22 (Valtrex) #20 tab-caps omeprazole 20 mg capsule,delayed 20 mg PO BID #60 caps 02/26/22 release benzonatate 100 mg capsule 100 mg PO TID PRN cough #10 caps 03/04/22 Allergies Allergy/AdvReac Type Severity Reaction Status Date / Time No Known Allergies Allergy Verified 03/04/22 12:25 General Stated Complaint: RespSymp DANAE: 4 Review of Systems Constitutional Constitutional: Reports as per HPI and Denies headache(s) Eyes Eyes: Reports as per HPI, Denies eye discharge and Denies irritation ENT Ears, Nose, Mouth, and Throat: Reports as per HPI and Denies headache(s) Cardiovascular Cardiovascular: Reports as per HPI and Denies chest pain Respiratory Respiratory: Reports as per HPI Gastrointestinal Gastrointestinal: Reports as per HPI, Denies abdominal pain, Denies change in bowel habits, Denies nausea and Denies vomiting Integumentary/Breasts Skin/Breast: Reports as per HPI and Denies rash Neurologic Neurologic: Reports as per HPI and Denies headache(s) PFSH All Active Problems (Updated 03/05/22 @ 00:05 by RIP MOELLER) URI (upper respiratory infection) (Acute) Skin lesion of right leg (Acute) Probable jessie keratosis, but inflamed, with pink/red irritation .. recommending excision and Bx .. or punch Bx @ 5o'clock area of irritation. KIRK (obstructive sleep apnea) (Chronic) Dx 2011 CPAP 2020 Managed by Melissa Briceño GERD (gastroesophageal reflux disease) (Chronic) Medical History Allergic rhinitis due to allergen Pt does NOT have asthma. Cataract Tracy 2019 Chronic rhinitis Contusion of foot, right Degenerative joint disease of right knee Family history of diabetes mellitus All 3 siblings GERD (gastroesophageal reflux disease) Health care maintenance Manages HCM closely, incl Life Screening Testing. Herpes labialis (08/02/15) Laryngospasm Exacerbated with crying (Hx allergy testing: Dx of laryngospasm, NOT asthma) which has been daily due to dogs deaths and current dog with cancer. 01/2022. ik KIRK (obstructive sleep apnea) Re-started CPAP (2019) .. Hx not using CPAP Machine Osteoarthritis of left knee Osteopenia (08/02/15) Post-nasal drip Stress due to illness of family member Sister with breast cancer (complicated by mental illness) ([place]) Stressful life event affecting family Temporomandibular joint disorders Right condyle displacement Unilateral primary osteoarthritis, left knee Surgical History H/O breast augmentation 1990, 2007 H/O tubal ligation History of photorefractive keratectomy (PRK) S/P LASIK surgery of both eyes Status post cataract extraction and insertion of intraocular lens of left eye (12/01/18) Status post cataract extraction and insertion of intraocular lens of right eye (12/15/18) Family History Mother , in 2019 Dementia Alzheimers disease Father Penile cancer Substance abuse Sister Breast cancer Diabetes Bipolar disorder Brother Diabetes Anxiety Depression Brother Diabetes Substance abuse Anxiety Depression Maternal Grandfather Diabetes Hypertension Paternal Aunt Diabetes Maternal Grandmother Bipolar disorder Social History Smoking/Tobacco Use Status: Former Tobacco Use Quit Date: 09/02/16 Tobacco: How many years used: 12 Smoking risk assessment performed?: Yes Alcohol Intake: current Alcohol Intake frequency: a few times a month Alcohol type: wine Drug use: Never Adopted: No Caregiver/Support person: No Foster care: No Household members: spouse and family Housing: house Number of Children: 0 number of grandchildren: 0 Education Level: vocational Do you need help understanding health information?: Never current occupation: Retired Pets and animals: Yes Pets and animals: dog(s) Sexually active: No Do you think of yourself as: straight/heterosexual Current gender identity: female What is your relationship status?: How often do you talk on the phone with friends or family?: twice per week Do you belong to any clubs or organized social groups?: no Panel score (0-1 are the most socially isolated patients): 1 What type of physical activity do you participate in: none Duration: < 15 minutes/day Cathi/Episcopalian: Anabaptism Special cathi needs: No Seatbelt use: always Helmet use: No Drive intox or ride w/intox 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 Do you feel safe at home: Yes Do you feel safe in your relationship?: Yes Exam Const General: cooperative, healthy appearing, comfortable, no acute distress, well developed, well groomed and anxious Nutritional Appearance: average body habitus and well nourished Orientation: alert and awake HENWI Head: normal to inspection and normocephalic Ears: hearing grossly normal bilaterally, external ears normal and TM's normal bilaterally General nose exam: external nose normal and nares normal Face and sinus: normal facial exam, sinuses nontender and face symmetric Mouth: oral mucosae normal, lip normal, tongue normal, oropharynx normal and moist mucous membranes Teeth and gingiva: dentition normal Throat: posterior oropharynx normal, tonsils normal and uvula midline Eyes General: appearance normal, both eyes and all related structures Neck Neck: normal visual inspection, full ROM and no lymphadenopathy Resp Effort & Inspection: normal respiratory effort, able to speak in complete sentences and no respiratory distress Auscultation: clear to auscultation bilaterally, no rales, no rhonchi and no wheezes Cardio Rate: tachycardic Rhythm: regular rhythm Heart Sounds: S1 normal and S2 normal Skin General skin exam: no rashes or lesions noted Neuro General: patient alert and patient awake Cognition: normal cognition Speech: speech normal Gait: normal gait Extrem General: no pedal edema, no calf tenderness and normal gait Psych Appearance: grossly normal and well kempt Mental Status: mental status grossly normal Speech and Movement: speech and movement normal Course Vital Signs Vital signs: Vital Signs Temperature 36.7 C 03/04/22 12:21 Pulse 133 H 03/04/22 12:21 Respiratory Rate 20 03/04/22 12:21 Blood Pressure 141/61 H 03/04/22 12:21 Pulse Oximetry 98 03/04/22 12:21 Temperature 36.7 C 03/04/22 12:21 Pulse 133 H 03/04/22 12:21 Respiratory Rate 20 03/04/22 12:21 Blood Pressure 141/61 H 03/04/22 12:21 Blood Pressure Position Supine 03/04/22 12:21 Pulse Oximetry 98 03/04/22 12:21 Oxygen Delivery Method Room Air 03/04/22 12:21 Oxygen Flow Rate 0 03/04/22 12:21
[2022-03-04 13:30] LABS: Abs Immature Grans 0.02 10^3/uL (0.0-0.06); Absolute Basophil Count 0.04 10^3/uL (0.0-0.2); Absolute Eosinophil Count 0.07 10^3/uL (0.0-0.7); Absolute Lymphocyte Count 0.82 10^3/uL (1.2-3.4); Absolute Monocyte Count 0.62 10^3/uL (0.1-0.8); Absolute Neutrophil Count 3.21 10^3/uL (1.2-6.7); Basophils % 0.8; Eosinophils % 1.5; HCT 41.6 % (36.0-46.0); HGB 13.9 g/dL (11.2-15.7); Immature Grans % 0.4; Lymphocytes % 17.2; MCH 29.4 pg (27.0-33.0); MCHC 33.4 % (32.0-36.0); MCV 88 fL (80-95); MPV 10.8 fL (8.0-11.0); Neutrophils % 67.1; Platelet Count 170 10^3/uL (130-400); RBC 4.72 10^6/uL (3.93-5.22); RDW 13.4 % (11.7-14.6); RDW-SD 43.3 fL; WBC 4.78 10^3/uL (4.4-10.8)
[2022-03-04 13:45] LABS: ALT 17 U/L (14-59); AST 18 U/L (15-37); Albumin 3.7 g/dL (3.4-5.0); Alkaline Phosphatase 68 U/L (46-116); Anion Gap 9.3 mmol/L (3-11); BUN 15 mg/dL (7-18); Bilirubin, Total 0.3 mg/dL (0.2-1.0); CO2 26.7 mmol/L (21.0-32.0); CREATININE 1.3 mg/dL (0.55-1.02); Calcium 8.8 mg/dL (8.5-10.1); Chloride 101 mmol/L (98-107); Estimated GFR 40.38 (mL/min/1.73m2); Glucose 117 mg/dL (74-106); Potassium 3.8 mmol/L (3.5-5.1); Sodium 137 mmol/L (136-145); Total Protein 7.2 g/dL (6.4-8.2)
--- NOTE | 2022-03-04 13:45 | DI.RAD_ITS ---
Exam(s) XR PORTABLE CHEST AP EXAM: XR PORTABLE CHEST AP CLINICAL HISTORY: cough, SOB. TECHNIQUE: 2D digital imaging was performed. COMPARISON: CR CHEST 2 VIEWS PA,LAT from 01/24/2017 FINDINGS: Single AP portable view. Heart size is upper normal. The mediastinum is not widened. Lungs are clear. No infiltrates nor obvious pleural effusions. Breast implants again noted. Pectus excavatum evident on the prior lateral view of 2017. IMPRESSION: No acute pulmonary findings on this single AP portable view of the chest. DATA REPOSITORY: RADIATION DOSE DELIVERED: All CT scans at this facility use at least one of these dose optimization techniques: automated exposure control; mA and/or kV adjustment per patient size (includes targeted e xams where dose is matched to clinical indication); or iterative reconstruction.
--- NOTE | 2022-03-04 13:51 | DI.VRAD_ITS ---
PROCEDURE INFORMATION: Exam: XR Chest Exam date and time: 03/04/2022 1:24 PM Age: 71 years old Clinical indication: Cough and shortness of breath TECHNIQUE: Imaging protocol: Radiologic exam of the chest. Views: 1 view. COMPARISON: CR CHEST 2 VIEWS PA,LAT 01/24/2017 9:34 PM FINDINGS: Lungs: Unremarkable. No consolidation. Pleural spaces: Unremarkable. No pleural effusion. No pneumothorax. Heart/Mediastinum: Unremarkable. No cardiomegaly. Bones/joints: Degenerative osseous changes. IMPRESSION: No actue cardiopulmonary abnormalities. Dictated and Authenticated by: Miguel A Joe MD. Ordering:JABARI Rabago MD
[2022-03-04] MEDS: Normal Saline 1,000 ML 1000 ML IV (13:57)
[2022-03-04 14:12] LABS: D-Dimer 476 ng/mlFEU (<500)
[2022-03-04 14:59] LABS: COVID-19 PCR Negative (Negative); Influenza A PCR Negative (Negative); Influenza B PCR Negative (Negative); RSV PCR Negative (Negative)
[2022-03-04 15:58] VITALS: PULSE 80
== END 2022-03-04 16:08 | disposition home or self-care (01) ==
PROVIDERS: Emergency Provider Physician Assistant; PCP Student in an Organized Health Care Education/Training Program
DX: J06.9 Acute upper respiratory infection, unspecified (principal); R00.0 Tachycardia, unspecified; Z87.891 Personal history of nicotine dependence; Z20.822 Contact with and (suspected) exposure to COVID-19
CPT/HCPCS: 36415; 80053; 87637; 93005; 96360; 99284; 71045; 85025; 85379; 93010

== ENCOUNTER → 2022-04-02 09:53 | Outpatient (BNVA) | payer MEDICARE, SELFPAY | PROVIDERS: PCP Student in an Organized Health Care Education/Training Program; Referring Provider Student in an Organized Health Care Education/Training Program; Visit Provider Surgery | DX: L98.9 Disorder of the skin and subcutaneous tissue, unspecified (principal); D17.9 Benign lipomatous neoplasm, unspecified; K21.9 Gastro-esophageal reflux disease without esophagitis | CPT/HCPCS: 17110; 99213 ==

== ENCOUNTER → 2022-04-19 09:25 | Outpatient (BNVA) | payer MEDICARE, SELFPAY | PROVIDERS: PCP Student in an Organized Health Care Education/Training Program; Referring Provider Student in an Organized Health Care Education/Training Program; Visit Provider Student in an Organized Health Care Education/Training Program | DX: M17.11 Unilateral primary osteoarthritis, right knee (principal); M17.12 Unilateral primary osteoarthritis, left knee | CPT/HCPCS: 99213 ==

== ENCOUNTER 2022-06-20 13:56 | Outpatient (CLI) | payer MEDICARE, SELFPAY ==
[2022-06-20 14:10] VITALS: BP 104/61; PULSE 84; RESP 20; TEMP 36.6; O2SAT 98
[2022-06-20 14:52] VITALS: PULSE 81; O2SAT 100
--- NOTE | 2022-06-20 15:00 | DI.RAD_ITS ---
Exam(s) XR PAIN CLINIC FLUORO JOINT IN EXAM: XR PAIN CLINIC FLUORO JOINT IN CLINICAL HISTORY: Dx: Osteoarthritis of the knee TECHNIQUE: 2D and realtime digital imaging was performed. Radiologist not present. CONTRAST MATERIAL: None. COMPARISON: No exams were available for comparison FINDINGS: Fluoroscopy was provided for pain management therapy. Please refer to procedure report or details. Cumulative dose: Ka,r=5.35 mGy IMPRESSION: RADIATION DOSE DELIVERED:
--- NOTE | 2022-06-20 15:01 | PDOC.PAIN ---
Date of service: 06/20/22 Time of Service: 15:04 Pain Clinic Procedure Note Procedure Note Procedure Note: BILATERAL GENICULAR NERVE BLOCK Date of Service: June 20, 2022 Patient: Nicole Vicente Provider: Tray Ram DO, MPH Pre-operative diagnosis: Bilateral Knee pain Post-operative diagnosis: Same Pre-procedure pain: VAS= 7/10 COMMENTS: She was seen by Dr. Ying who recommended this procedure. She has severe osteoarthritis, but cannot currently have a TKA. Nicole Vicente has been [facility] to [facility] for bilateral genicular nerve block. Nicole was interviewed and the medical record reviewed. There were no medical, pharmacologic, radiographic or other structural contraindications to attempting fluoroscopically guided bilateral genicular nerve block. Risks and potential side effects as well as potential benefit of the procedure were reviewed with Nicole , and her voiced concerns were addressed. After I believed that the patient was completely informed, the printed consent form was signed. Standard time-out procedure was performed. Nicole was placed in the supine position on the fluoroscopy table and automated blood pressure cuff and pulse oximeter applied. The skin entry points for approaching the bilateral superolateral genicular nerve, the superomedial genicular nerve, the terminal branch of the nerve vastus intermedius and the inferomedial genicular was identified under the most advantageous fluoroscopic view and marked. Following thorough Chlorhexadine preparation of the skin and draping, 1% lidocaine infiltration of the skin entry point and subcutaneous tissues was accomplished using a 1.5 25G needle. Next, the 3.5 25G spinal needle was advanced to os at the location of the specific nerve root using fluoroscopic guidance. Next, 1 ml of 1% Lidocaine was injected at each site. The needles were removed without difficulty. Nicole's vital signs were stable throughout the procedure and were as recorded in the docflowsheet by the nursing staff. If given, dosages of intravenous drugs for anxiolysis and analgesia were documented in MAR. Follow up plans and appointments were discussed with the Nicole . Post procedure instruction was given as documented in nursing documentation and having met discharge criteria, Nicole was [facility] from the [facility]. COMMENTS: No apparent complications. Post-procedure pain: VAS = 0/10 on the left and 2/10 on the right. The patient will keep track of her bilateral knee pain over the next four hours. If Nicole has sufficient pain relief, Nicole will be a candidate for radiofrequency ablation at the same nerves. Welch WJ1, Prasanna SJ, Jaswinder JG, Migdalia JG, [place] MEDLEY, Park PH, Perkins JW. Radiofrequency treatment relieves chronic knee osteoarthritis pain: a double-blind randomized controlled trial. Pain. 2010;152(3):481-7. doi: 10.1016/j.pain.2010.09.029. Milla S1, Brandin ON2, Gillian Y3, ?zl?vielka P2, Juventino U1, Sukumar ?m?rl? I. Which one is more effective for the clinical treatment of chronic pain in knee osteoarthritis: radiofrequency neurotomy of the genicular nerves or intra-articular injection? Int J Rheum Dis. 2016 Apr 13. Tray Ram DO, MPH [facility]-Pain Management [facility]
[2022-06-20] MEDS: Bupivacaine 0.5% Pres-Free 10 ML VIAL IJ (15:09)
[2022-06-20] MEDS: Omnipaque 240 MG/ML 50 ML BTL IJ (15:09)
== END 2022-06-20 13:57 | disposition home or self-care (01) ==
LOC: PC 14:00
PROVIDERS: PCP Student in an Organized Health Care Education/Training Program; Visit Provider Preventive Medicine Occupational Medicine
DX: M25.561 Pain in right knee (principal); M25.562 Pain in left knee
CPT/HCPCS: 64454; 77002; Q9967

== ENCOUNTER 2022-10-04 08:29 | Outpatient (CLI) | payer MEDICARE, SELFPAY ==
--- NOTE | 2022-10-04 06:00 | DI.RAD_ITS ---
Exam(s) XR PAIN CLINIC FLUORO JOINT IN EXAM: XR PAIN CLINIC FLUORO JOINT IN CLINICAL HISTORY: Dx: Osteoarthritis. TECHNIQUE: Fluoroscopy was provided for the referring physician for guidance with performing pain cl inic injection procedure. COMPARISON: No exams were available for comparison FINDINGS: Please see procedure note for details. Fluoro time: 63 point seconds RADIATION DOSE DELIVERED: pamela Bagley=5.37 mGy
[2022-10-04 08:49] VITALS: BP 133/69; PULSE 83; RESP 20; TEMP 36.7; O2SAT 97
[2022-10-04] MEDS: fentaNYL 100 MCG/2 ML VIAL IVP (09:26)
[2022-10-04] MEDS: Midazolam 2 MG/2 ML VIAL IVP (09:27)
[2022-10-04] MEDS: Lactated Ringers 500 ML 80 ML IV (09:27)
[2022-10-04 09:53] VITALS: BP 129/55; PULSE 77; RESP 18; O2SAT 99
[2022-10-04] MEDS: methylPREDNISolone ACETATE 40 MG/ML VIAL IJ (10:10)
[2022-10-04] MEDS: Bupivacaine 0.5% Pres-Free 10 ML VIAL IJ (10:11)
[2022-10-04] MEDS: Lidocaine 2% Pres-Free 5 ML VIAL IJ (10:11)
--- NOTE | 2022-10-04 10:55 | PDOC.PAIN_ITS ---
Date of service: 10/04/22 Time of Service: 10:59 Pain Clinic Procedure Note Procedure Note Procedure Note: LEFT GENICULAR NERVE RADIOFREQUENCY ABLATION WITH THE COOLIEF MACHINE Date of Service: October 04, 2022 Patient: Nicole Vicente Provider: Tray Ram DO, MPH Pre-operative diagnosis: Left knee pain Post-operative diagnosis: Same Pre-procedure pain VAS was 7/10 COMMENTS: Previous Genicular nerve block to the LEFT knee. Nicole Vicente has been referred to the [facility] for LEFT genicular nerve radiofrequency ablation. Nicole was interviewed and the medical record reviewed. There were no medica l, pharmacologic, radiographic or other structural contraindications to attempting fluoroscopically guided LEFT genicular nerve radiofrequency ablation. Risks and potential side effects as well as potential benefit of the procedure were reviewed with Nicole Vicente , and HER voiced concerns were addressed. After I believed that the patient was completely informed, the printed consent form was signed. Standard time-out procedure was performed. Nicole was placed in the supine position on the fluoroscopy table and automated blood pressure cuff and pulse oximeter applied. The skin entry points for approaching LEFT superolateral genicular nerve, the superomedial genicular nerve and the inferomedial genicular was identified under the most advantageous fluoroscopic view and marked. Following thorough Chlorhexadine preparation of the skin and draping, 1% lidocaine infiltration of the skin entry point and subcutaneous tissues was accomplished using a 1.5 25G needle. Next, the 10 cm 18G RF Cannula with a 10 mm active tip was advanced to os at the location of the specific nerve roots (3) using fluoroscopic guidance. Next, sensory and motor testing was performed and no abnormal findings were found. Next, 1 cc of 2% Lidocaine was injected at each site. The lesion was then created with 80 degrees C for 90 seconds. Each needle was advance 1 cm and the lesion was completed again. Each cannula was advanced until the tip reached the posterior aspect of the bone shaft. 1/3 cc of Depomedrol (40 mg/cc) was then injected at each site followed by 2 cc of 0.5% Bupivacaine as the needle was withdrawn. The needles were removed without difficulty. Nicole's vital signs were stable throughout the procedure and were as recorded in the docflowsheet by the nursing staff. If given, dosages of intravenous drugs for anxiolysis and analgesia were documented in MAR. Follow up plans and appointments were discussed with the Nicole Vicente . Post procedure instruction was given as documented in nursing documentation and having met discharge criteria, Nicole was discharged from the [facility]. COMMENTS: No complications. Post-procedure pain VAS was 0/10. Yuri WJ1, Prasanna SJ, Jaswinder JG, Migdalia JG, Miki MEDLEY, Kerrie PH, Gregorio JW. Radiofrequency treatment relieves chronic knee osteoarthritis pain: a double-blind randomized controlled trial. Pain. 2010;152(3):481-7. doi: 10.1016/j.pain.2010.09.029. Milla S1, Brandin ON2, Gillian Y3, ?zl?lerden P2, Juventino U1, Sukumar ?m?rl? I. Which one is more effective for the clinical treatment of chronic pain in knee osteoarthritis: radiofrequency neurotomy of the genicular nerves or intra- articular injection? Int J Rheum Dis. 2016 Apr 13. F/U with our office Tray Ram DO, MPH [facility]-Pain Management [facility]
== END 2022-10-04 08:30 | disposition home or self-care (01) ==
PROVIDERS: PCP Student in an Organized Health Care Education/Training Program; Visit Provider Preventive Medicine Occupational Medicine
DX: M25.562 Pain in left knee (principal)
CPT/HCPCS: 64624; 77002; J1030; J2250; J3010

== ENCOUNTER 2022-11-07 13:06 | Outpatient (CLI) | payer MEDICARE, SELFPAY ==
[2022-11-07 13:19] VITALS: BP 123/68; PULSE 81; RESP 20; TEMP 36.8; O2SAT 96
[2022-11-07] MEDS: fentaNYL 100 MCG/2 ML VIAL IVP (14:00)
[2022-11-07] MEDS: Midazolam 2 MG/2 ML VIAL IVP (14:01)
[2022-11-07] MEDS: Lactated Ringers 500 ML 80 ML IV (14:01)
--- NOTE | 2022-11-07 14:21 | DI.RAD_ITS ---
Exam(s) XR PAIN CLINIC FLUORO JOINT IN EXAM: XR PAIN CLINIC FLUORO JOINT IN CLINICAL HISTORY: Dx: Osteoarthritis of the knee. TECHNIQUE: Fluoroscopy was provided for the referring physician for guidance with performing pain cl inic injection procedure. COMPARISON: No exams were available for comparison FINDINGS: Please see procedure note for details. Fluoro time: 43.8 seconds RADIATION DOSE DELIVERED: pamela Bagley=3.12 mGy
[2022-11-07 14:23] VITALS: BP 131/80; PULSE 66; RESP 16; O2SAT 98
[2022-11-07] MEDS: methylPREDNISolone ACETATE 40 MG/ML VIAL IJ (14:39)
[2022-11-07] MEDS: Bupivacaine 0.5% Pres-Free 10 ML VIAL IJ (14:39)
[2022-11-07] MEDS: Lidocaine 2% Pres-Free 5 ML VIAL IJ (14:39)
--- NOTE | 2022-11-07 18:40 | PDOC.PAIN ---
Date of service: 11/07/22 Time of Service: 14:30 Pain Clinic Procedure Note Procedure Note Procedure Note: RIGHT GENICULAR NERVE RADIOFREQUENCY ABLATION WITH THE COOLIEF MACHINE Date of Service: November 07, 2022 Patient: Nicole Vicente Provider: Tray Ram DO, MPH Pre-operative diagnosis: Right knee pain Post-operative diagnosis: Same Pre-procedure pain VAS score = 8/10. COMMENTS: Previous Genicular nerve block to the RIGHT knee. Nicole Vicente has been referred to the [facility] for RIGHT genicular nerve radiofrequency ablation. Nicole was interviewed and the medical record reviewed. There were no medical, pharmacologic, radiographic or other structural contraindications to attempting fluoroscopically guided RIGHT genicular nerve radiofrequency ablation. Risks and potential side effects as well as potential benefit of the procedure were reviewed with Nicole Vicente , and HER voiced concerns were addressed. After I believed that the patient was completely informed, the printed consent form was signed. Standard time-out procedure was performed. Nicole was placed in the supine position on the fluoroscopy table and automated blood pressure cuff and pulse oximeter applied. The skin entry points for approaching RIGHT superolateral genicular nerve, the superomedial genicular nerve and the inferomedial genicular was identified under the most advantageous fluoroscopic view and marked. Following thorough Chlorhexadine preparation of the skin and draping, 1% lidocaine infiltration of the skin entry point and subcutaneous tissues was accomplished using a 1.5 25G needle. Next, the 10 cm 18G RF Cannula with a 10 mm active tip was advanced to os at the location of the specific nerve roots (3) using fluoroscopic guidance. Next, sensory and motor testing was performed and no abnormal findings were found. Next, 1 cc of 2% Lidocaine was injected at each site. The lesion was then created with 80 degrees C for 90 seconds. Each needle was advance 1 cm and the lesion was completed again. Each cannula was advanced until the tip reached the posterior aspect of the bone shaft. 1/3 cc of Depomedrol (40 mg/cc) was then injected at each site followed by 2 cc of 0.5% Bupivacaine as the needle was withdrawn. The needles were removed without difficulty. Nicole's vital signs were stable throughout the procedure and were as recorded in the docflowsheet by the nursing staff. If given, dosages of intravenous drugs for anxiolysis and analgesia were documented in MAR. Follow up plans and appointments were discussed with the Nicole Vicente . Post procedure instruction was given as documented in nursing documentation and having met discharge criteria, Nicole was discharged from the [facility]. COMMENTS: No complications. Post-procedure pain VAS = 1/10. Yuri WJ1, Prasanna SJ, Jaswinder JG, Migdalia JG, Miki MEDLEY, Kerrie PH, Gregorio JW. Radiofrequency treatment relieves chronic knee osteoarthritis pain: a double-blind randomized controlled trial. Pain. 2010;152(3):481-7. doi: 10.1016/j.pain.2010.09.029. Milla S1, Brandin ON2, Gillian Y3, ?zl?lerden P2, Juventino U1, Sukumar ?m?rl? I. Which one is more effective for the clinical treatment of chronic pain in knee osteoarthritis: radiofrequency neurotomy of the genicular nerves or intra-articular injection? Int J Rheum Dis. 2016 Apr 13. F/U with our office as needed I personally performed this entire procedure. Tray Ram DO, MPH [facility] Management [facility] [place]
== END 2022-11-07 13:07 | disposition home or self-care (01) ==
LOC: PC 13:06
PROVIDERS: PCP Student in an Organized Health Care Education/Training Program; Visit Provider Preventive Medicine Occupational Medicine
DX: M25.561 Pain in right knee (principal)
CPT/HCPCS: 64624; 77002; J1030; J2250; J3010

== ENCOUNTER 2023-11-28 21:00 | Outpatient (REF) | payer MEDICARE, SELFPAY ==
[2023-11-28 22:19] LABS: Bacteria Rare HPF (Negative); C & S Indicated? C&S Done As Ordered; Crystals Negative HPF (Negative); Epithelial Cells Rare HPF (Negative); Mucus Negative (Negative); Other Cells Negative (Negative); RBC 0-2 HPF (0-2)
== END 2023-11-28 21:01 | disposition home or self-care (01) ==
LOC: LBN 21:00
PROVIDERS: PCP Student in an Organized Health Care Education/Training Program; Visit Provider Physician Assistant Medical
DX: R30.0 Dysuria (principal); B96.29 Other Escherichia coli [E. coli] as the cause of diseases classified elsewhere
CPT/HCPCS: 87077; 81015; 87086; 87186

== ENCOUNTER 2023-12-10 18:16 | Outpatient (REF) | payer MEDICARE, SELFPAY | END 2023-12-10 18:17 | disposition home or self-care (01) | LOC: LBN 18:16 | PROVIDERS: PCP Student in an Organized Health Care Education/Training Program; Visit Provider Student in an Organized Health Care Education/Training Program | DX: N39.0 Urinary tract infection, site not specified (principal); R30.0 Dysuria | CPT/HCPCS: 87086 ==

== ENCOUNTER 2024-01-16 05:16 | Outpatient (CLI) | payer MEDICARE, SELFPAY ==
[2024-01-16 15:03] LABS: Abs Immature Grans 0.01 10^3/uL (0.0-0.06); Absolute Basophil Count 0.05 10^3/uL (0.0-0.2); Absolute Eosinophil Count 0.17 10^3/uL (0.0-0.7); Absolute Lymphocyte Count 1.91 10^3/uL (1.2-3.4); Absolute Monocyte Count 0.44 10^3/uL (0.1-0.8); Absolute Neutrophil Count 3.89 10^3/uL (1.2-6.7); Basophils % 0.8 %; Eosinophils % 2.6 %; HCT 40.2 % (36.0-46.0); HGB 13.4 g/dL (11.2-15.7); Immature Grans % 0.2 %; Lymphocytes % 29.5 %; MCH 29.6 pg (27.0-33.0); MCHC 33.3 % (32.0-36.0); MCV 89 fL (80-95); Monocytes % 6.8 %; Neutrophils % 60.1 %; Platelet Count 185 10^3/uL (130-400); RBC 4.52 10^6/uL (3.93-5.22); RDW 13.2 % (11.7-14.6); RDW-SD 43.1 fL; WBC 6.47 10^3/uL (4.4-10.8)
[2024-01-16 15:14] LABS: Hemoglobin A1C 5.9 % (<5.7)
[2024-01-16 16:20] LABS: ALT 24 U/L (14-59); AST 21 U/L (15-37); Albumin 3.7 g/dL (3.4-5.0); Alkaline Phosphatase 60 U/L (46-116); Anion Gap 9.7 mmol/L (3-11); BUN 21 mg/dL (7-18); Bilirubin, Total 0.4 mg/dL (0.2-1.0); CO2 28.3 mmol/L (21.0-32.0); Calcium 9.2 mg/dL (8.5-10.1); Calculated LDL 138 mg/dL (<100); Chloride 101 mmol/L (98-107); Cholesterol 247 mg/dL (<200); Estimated GFR 59.49 (mL/min/1.73m2); Glucose 92 mg/dL (74-106); HDL Cholesterol 101 mg/dL (40-60); Sodium 139 mmol/L (136-145); TSH 1.57 uIU/Ml (0.36-3.74); Total Protein 7.1 g/dL (6.4-8.2); Triglyceride 42 mg/dL (<150)
[2024-01-16 17:13] LABS: Vitamin D 25 Total 70.2 ng/mL (30-100)
[2024-01-16 17:50] LABS: Vitamin B12 515 pg/mL (193-986)
== END 2024-01-16 05:17 | disposition home or self-care (01) ==
PROVIDERS: PCP Student in an Organized Health Care Education/Training Program; Visit Provider Registered Nurse
DX: Z79.899 Other long term (current) drug therapy (principal)
CPT/HCPCS: 36415; 80053; 80061; 82306; 82607; 83036; 84443; 85025

== ENCOUNTER 2024-02-06 08:26 | Outpatient (CLI) | payer MEDICARE, SELFPAY ==
[2024-02-06] VITALS (13 sets, daily range): BP systolic 76–127; BP diastolic 42–73; PULSE 55–71; RESP 8–20; TEMP 36.7; O2SAT 94–100
[2024-02-06] MEDS: Midazolam 2 MG/2 ML VIAL IVP (08:28)
[2024-02-06] MEDS: Lactated Ringers 500 ML 80 ML IV (08:29)
[2024-02-06] MEDS: fentaNYL 100 MCG/2 ML VIAL IVP ×2 (08:29→08:36)
--- NOTE | 2024-02-06 08:58 | DI.RAD_ITS ---
Exam(s) XR PAIN CLINIC FLUORO JOINT IN EXAM: XR PAIN CLINIC FLUORO JOINT IN CLINICAL HISTORY: DX: Right knee Osteoarthritis TECHNIQUE: 2D and realtime digital imaging was performed. Radiologist not present. CONTRAST MATERIAL: None. COMPARISON: No exams were available for comparison FINDINGS: Fluoroscopy was provided for pain management therapy. Please refer to procedure report or details. Radiation Exposure Index: Ka,r=2.52 mGy IMPRESSION: As above. RADIATION DOSE DELIVERED:
[2024-02-06] MEDS: Lidocaine 2% Multi-Dose 20 ML VIAL IJ (08:59)
[2024-02-06] MEDS: methylPREDNISolone ACETATE 40 MG/ML VIAL IJ (09:00)
[2024-02-06] MEDS: Nerve Block Tray 1 EACH MC (09:00)
[2024-02-06] MEDS: Bupivacaine 0.5% Pres-Free 10 ML VIAL IJ (09:00)
--- NOTE | 2024-02-06 09:00 | PDOC.PAIN ---
Date of service: 02/06/24 Time of Service: 09:00 Pain Managment Procedure Note Procedure Note Procedure Note: PROCEDURE NOTE LEFT GENICULAR NERVE RADIOFREQUENCY ABLATION Date of Service: February 06, 2024 Patient: Nicole Vicente Provider: Stephany Abreu DO, MPH Nicole Vicente has been referred to the [facility] for Left genicular nerve radiofrequency ablation with the [employer] machine. Pre-operative diagnosis: Pain in left knee M25.562 Post-operative diagnosis: Same Pre-Procedure Pain: VAS=7/10 Comments: Previous genicular nerve RFA to the Left knee with >12 months of >50% pain relief. PROCEDURE: 1. Superolateral genicular branch from the vastus lateralis 2. Superomedial genicular branch from the vastus medialis 3. Inferomedial genicular branch from the saphenous nerve 4. Terminal branch of the nerve vastus intermedius Nicole was interviewed and the medical record reviewed. There were no medical, pharmacologic, radiographic or other structural contraindications to attempting fluoroscopically guided Left genicular nerve radiofrequency ablation. Risks and potential side effects as well as potential benefit of the procedure were reviewed with Nicole Vicente , and the patient's voiced concerns were addressed. After I believed that the patient was completely informed, the printed consent form was signed. Standard time-out procedure was performed. Nicole Vicente was brought into brought to the procedure room and placed on the fluoroscopy table in a comfortable supine position and automated blood pressure cuff and pulse oximeter applied. A grounding pad was placed on the left ankle. The place for needle placement was obtained by manual palpation with radiographic confirmation. The skin entry points for approaching Left superolateral genicular nerve, the superomedial genicular nerve, nerve of the vastus intermedius and the inferomedial genicular was identified under the most advantageous fluoroscopic view and marked. Following thorough Chlorhexadine preparation of the skin and draping, 1% lidocaine infiltration of the skin entry point and subcutaneous tissues was accomplished using a 1.5 25G needle. Next, the 17G 50 mm radiofrequency cannula needle with a 4mm active tip was advanced to os at the location of the specific nerve roots (4) using fluoroscopic guidance. Next, motor testing was performed and no abnormal findings were found. Next, 1 cc of 2% Lidocaine was injected at each site after negative aspiration. The lesion was then created with 80 degrees Celsius for 2 minutes and 30 seconds each. 1/4 cc of Depo-Medrol (40 mg/cc) was then injected at each site followed by 1 cc of 0.5% Bupivacaine as the needle was withdrawn. There was no unusual discomfort expressed by Nicole. The needles were withdrawn without difficulty. Nicole was observed and was without hemodynamic, neurologic, or allergic reactions.? Fluoroscopic images were digitally archived. Nicole's vital signs were stable throughout the procedure and were as recorded in the docflowsheet by the nursing staff. If given, dosages of intravenous drugs for anxiolysis and analgesia were documented in MAR. POST PROCEDURE EVALUATION: IMPRESSION: 1. Medication given is documented in the MAR 2. Follow up plan: Nicole to contact [facility] as needed. This procedure may be repeated if the patient achieves at least 50% improvement in pain and/or function for at least 6 months. 3. Estimated Blood Loss: <5ml 4. Fluoroscopy time: Documented in the EMR Follow up plans and appointments were discussed with Nicole. Post procedure instruction was given as documented in nursing documentation and having met discharge criteria, Nicole was discharged from the [facility]. COMMENTS: No apparent complications. Post-procedure pain: VAS= 3/10. Welch WJ1, Prasanna SJ, Jaswinder JG, Migdalia JG, Miki MEDLEY, Kerrie PH, Gregorio JW. Radiofrequency treatment relieves chronic knee osteoarthritis pain: a double-blind randomized controlled trial. Pain. 2010;152(3):481-7. doi: 10.1016/j.pain.2010.09.029. Milla S1, Brandin ON2, Gillian Y3, ?zl?vielka P2, Juventino U1, Sukumar ?m?rl? I. Which one is more effective for the clinical treatment of chronic pain in knee osteoarthritis: radiofrequency neurotomy of the genicular nerves or intra-articular injection? Int J Rheum Dis. 2016 Apr 13. I personally completed the entire procedure. STEPHANY ABREU DO, MPH [employer]BPM[employer] - Subspecialty board certification in Pain Medicine [facility]
== END 2024-02-06 08:27 | disposition home or self-care (01) ==
PROVIDERS: PCP Student in an Organized Health Care Education/Training Program; Visit Provider Preventive Medicine Occupational Medicine
DX: M25.562 Pain in left knee (principal)
CPT/HCPCS: 64624; 77002; J0665; J1010; J2003; J2250; J3010

== ENCOUNTER 2024-02-20 07:35 | Outpatient (CLI) | payer MEDICARE, SELFPAY ==
[2024-02-20 07:45] VITALS: BP 113/71; PULSE 68; RESP 20; TEMP 36.8; O2SAT 99
[2024-02-20 08:15] VITALS: BP 119/70; PULSE 68; RESP 20; O2SAT 98
[2024-02-20] MEDS: Midazolam 2 MG/2 ML VIAL IVP (08:15)
[2024-02-20] MEDS: fentaNYL 100 MCG/2 ML VIAL IVP (08:15)
[2024-02-20] MEDS: Lactated Ringers 500 ML 80 ML IV (08:16)
[2024-02-20 08:25] VITALS: BP 115/70; PULSE 68; RESP 20; O2SAT 98
[2024-02-20 08:30] VITALS: BP 114/69; PULSE 71; RESP 20; O2SAT 98
[2024-02-20 08:35] VITALS: BP 125/77; PULSE 61; RESP 20; O2SAT 99
--- NOTE | 2024-02-20 08:40 | DI.RAD_ITS ---
Exam(s) XR PAIN CLINIC FLUORO JOINT IN EXAM: XR PAIN CLINIC FLUORO JOINT IN CLINICAL HISTORY: DX: Right knee Osteoarthritis TECHNIQUE: 2D and realtime digital imaging was performed. CONTRAST MATERIAL: Refer to procedure report. COMPARISON: No exams were available for comparison FINDINGS: Fluoroscopy was provided for Dr. Ram during the performance of a right genicular radiofrequency abl ation. Please refer to the procedure report for complete details. Ka,r=3.1 mGy IMPRESSION: RADIATION DOSE DELIVERED: 0.0 0.0 0
--- NOTE | 2024-02-20 08:45 | PDOC.PAIN_ITS ---
Date of service: 02/20/24 Time of Service: 08:45 Pain Managment Procedure Note Procedure Note Procedure Note: PROCEDURE NOTE RIGHT GENICULAR NERVE RADIOFREQUENCY ABLATION Date of Service: February 20, 2024 Patient: Nicole Vicente Provider: Stephany Abreu DO, MPH Nicole Vicente has been referred to the [facility] for Right genicular nerve radiofrequency ablation with the [employer] machine. Pre-operative diagnosis: Pain in right knee M25.561 Post-operative diagnosis: Same Pre-Procedure Pain: VAS=6/10 Comments: Previous genicular nerve Radiofrequency Ablation to the Right knee on 11/17/2022 and had >6 months of >50% pain relief. PROCEDURE: 1. Superolateral genicular branch from the vastus lateralis 2. Superomedial genicular branch from the vastus medialis 3. Inferomedial genicular branch from the saphenous nerve 4. Terminal branch of the nerve vastus intermedius Nicole was interviewed and the medical record reviewed. There were no medi araceli, pharmacologic, radiographic or other structural contraindications to attempting fluoroscopically guided Right genicular nerve radiofrequency ablation. Risks and potential side effects as well as potential benefit of the procedure were reviewed with Nicole Vicente , and the patient's voiced concerns were addressed. After I believed that the patient was completely informed, the printed consent form was signed. Standard time-out procedure was performed. Nicole Vicente was brought into brought to the procedure room and placed on the fluoroscopy table in a comfortable supine position and automated blood pressure cuff and pulse oximeter applied. A grounding pad was placed on the right ankle. The place for needle placement was obtained by manual palpation with radiographic confirmation. The skin entry points for approaching Right superolateral genicular nerve, the superomedial genicular nerve, nerve of the vastus intermedius and the inferomedial genicular was identified under the most advantageous fluoroscopic view and marked. Following thorough Chlorhexadine preparation of the skin and draping, 1% lidocaine infiltration of the skin entry point and subcutaneous tiss ues was accomplished using a 1.5 25G needle. Next, the 17G 50 mm radiofrequency cannula needle with a 4mm active tip was advanced to os at the location of the specific nerve roots (4) using fluoroscopic guidance. Next, motor testing was performed and no abnormal findings were found. Next, 1 cc of 2% Lidocaine was injected at each site after negative aspiration. The lesion was then created with 80 degrees Celsius for 2 minutes and 30 seconds each. 1/4 cc of Depo-Medrol (40 mg/cc) was then injected at each site followed by 1 cc of 0.5% Bupivacaine as the needle was withdrawn. There was no unusual discomfort expressed by Nicole. The needles were withdrawn without difficulty. Nicole was observed and was without hemodynamic, neurologic, or allergic reactions.? Fluoroscopic images were digitally archived. Nicole's vital signs were stable throughout the procedure and were as recorded in the docflowsheet by the nursing staff. If given, dosages of intravenous drugs for anxiolysis and analgesia were documented in MAR. POST PROCEDURE EVALUATION: IMPRESSION: 1. Medication given is documented in the MAR 2. Follow up plan: Nicole to contact [facility] as needed. This procedure may be repeated if the patient achieves at least 50% improvement in pain and/or function for at least 6 months. 3. Estimated Blood Loss: <5ml 4. Fluoroscopy time: Documented in the EMR Follow up plans and appointments were discussed with Nicole. Post procedure instruction was given as documented in nursing documentation and having met discharge criteria, Nicole was discharged from the [facility]. COMMENTS: No apparent complications. Post-procedure pain: VAS= 2/10. Welch WJ1, Prasanna SJ, Jaswinder JG, Migdalia JG, Miki MEDLEY, Kerrie PH, Gregorio JW. Radiofrequency treatment relieves chronic knee osteoarthritis pain: a double-blind randomized controlled trial. Pain. 2010;152(3):481-7. doi: 10.1016/j.pain.2010.09.029. Milla S1, Brandin ON2, Gillian Y3, ?zl?vielka P2, Juventino U1, Sukumar ?m?rl? I. Which one is more effective for the clinical treatment of chronic pain in knee osteoarthritis: radiofrequency neurotomy of the genicular nerves or intra- articular injection? Int J Rheum Dis. 2016 Apr 13. I personally completed the entire procedure. STEPHANY ABREU DO, MPH ABPM[employer]R - Subspecialty board certification in Pain Medicine [facility] [facility]
[2024-02-20 08:52] VITALS: BP 126/72; PULSE 68; RESP 20; O2SAT 98
[2024-02-20] MEDS: Nerve Block Tray 1 EACH MC (08:55)
[2024-02-20] MEDS: methylPREDNISolone ACETATE 40 MG/ML VIAL IJ (08:55)
[2024-02-20] MEDS: Lidocaine 2% Multi-Dose 20 ML VIAL IJ (08:55)
[2024-02-20] MEDS: Bupivacaine 0.5% Pres-Free 10 ML VIAL IJ (08:56)
== END 2024-02-20 07:36 | disposition home or self-care (01) ==
LOC: PC 07:35
PROVIDERS: PCP Student in an Organized Health Care Education/Training Program; Visit Provider Preventive Medicine Occupational Medicine
DX: M25.561 Pain in right knee (principal)
CPT/HCPCS: 64624; 77002; J0665; J1010; J2003; J2250; J3010

== ENCOUNTER 2024-05-08 00:30 | Outpatient (CLI) | payer MEDICARE, SELFPAY ==
--- NOTE | 2024-05-08 06:45 | DI.US_ITS ---
Exam(s) US AAA SCREENING EXAM: US AAA SCREENING CLINICAL HISTORY: evaluate AAA, h/o smoking COMPARISON: No exams were available for comparison FINDINGS: Abdominal Aorta: Proximal: 2.6 x 1.9 cm Mid: 1.8 x 1.9 cm Distal: 1.3 x 1.7 cm Iliac's: Right: 0.9 x 0.8 cm Left: 0.9 x 1.3 cm IMPRESSION: No evidence of abdominal aortic aneurysm. DATA REPOSITORY:
--- NOTE | 2024-05-08 06:45 | DI.MAMMO_ITS ---
Exam(s) MG MAMMO SCREENING 60 MIN DUR EXAM: MG MAMMO SCREENING 60 MIN DUR CLINICAL HISTORY: breast cancer screening,implants, z12.39 TECHNIQUE: Bilateral full field digital CC and MLO mammographic images were obtained with 3D tomosyn thesis and utilizing computer aided detection (CAD). COMPARISON: Available for comparison. FINDINGS: There are stable bilateral breast implants. Masses/Architectural Distortion: None seen. Microcalcifications: No suspicious pleomorphic-type are seen. Skin Thickening/Nipple Retraction: None. IMPRESSION: 1. No significant interval change with no specific features of malignancy noted. 2. Unless there is more urgent need, screening mammography is recommended, as per [employer] guidelines. BI-RADS Category 1 - Negative Breast Density - Category A - Almost entirely fatty Breast density category C or D implies that the patient has dense breast tissue. Dense breast tissue is very common and is not abnormal but dense breast tissue can make it harder to find cancer on a ma mmogram. Also, dense breast tissue may increase their breast cancer risk. This information about the result of the mammogram report was provided to the patient to raise their awareness. Use this report when you speak with the patient about their risks for breast cancer, which includes their family hist ory. At that time, you may recommend for more screening tests (Ultrasound or MRI) as they might be us eful based on their risk. A negative radiographic report should not delay biopsy if a dominant or clinically suspicious mass is present. Up to ten percent of cancers are not identified on mammography. A negative report may reinforce clinical impression. Adenosis and dense breasts may obscure an underlying neoplasm. False positive reports average 6 to 10%. Patient will receive a letter notifying them of these results.
== END 2024-05-08 00:50 ==
LOC: DI 00:30
PROVIDERS: PCP Student in an Organized Health Care Education/Training Program; Visit Provider Student in an Organized Health Care Education/Training Program
DX: Z87.891 Personal history of nicotine dependence (principal); Z12.31 Encounter for screening mammogram for malignant neoplasm of breast; Z13.6 Encounter for screening for cardiovascular disorders
CPT/HCPCS: 76706; 77063; 77067

== ENCOUNTER 2024-05-19 01:04 | Outpatient (CLI) | payer MEDICARE, SELFPAY ==
--- NOTE | 2024-05-19 07:00 | DI.RAD_ITS ---
Exam(s) XR FOOT RT COMPLETE EXAM: XR FOOT RT COMPLETE CLINICAL HISTORY: rt foot pain, m79.671. TECHNIQUE: 2D digital imaging was performed. Three views. COMPARISON: CR XR FOOT LT COMPLETE from 05/19/2024 FINDINGS: BONES: No acute fracture is present. No bony destructive lesion is seen. Small heel spurs. JOINTS: No dislocation present. Moderate degenerative changes at the 1st MTP joint. Mild hallux teresa kentrell. Plantar arch is maintained. Hammertoe deformities of the 3rd and 4th toes. SOFT TISSUE: Normal. IMPRESSION: First MTP joint degenerative changes and mild hallux valgus. Hammertoe deformities. DATA REPOSITORY: RADIATION DOSE DELIVERED:
--- NOTE | 2024-05-19 07:00 | DI.RAD_ITS ---
Exam(s) XR FOOT LT COMPLETE EXAM: XR FOOT LT COMPLETE CLINICAL HISTORY: Left foot pain,m79.672. TECHNIQUE: 2D digital imaging was performed. Three views. COMPARISON: CR XR FOOT RT COMPLETE from 02/02/2022 FINDINGS: BONES: No acute fracture is present. No bony destructive lesion is seen. Tiny enthesophyte at Achil les insertion. JOINTS: No dislocation present. Dhbc-gg-xlqparkz degenerative changes of the 1st MTP joint. Mild h allux valgus. Hammertoe deformities of the 3rd and 4th toes. The plantar arch is maintained. SOFT TISSUE: Normal. IMPRESSION: Ujtz-fl-pnfditba degenerative changes at the 1st MTP joint. Hammertoe deformities. DATA REPOSITORY: RADIATION DOSE DELIVERED:
== END 2024-05-19 01:24 ==
LOC: DI 01:04
PROVIDERS: PCP Student in an Organized Health Care Education/Training Program; Visit Provider Podiatrist
DX: M18.0 Bilateral primary osteoarthritis of first carpometacarpal joints (principal)
CPT/HCPCS: 73630

== ENCOUNTER → 2024-07-16 10:49 | Outpatient (BNVA) | payer MEDICARE, SELFPAY | PROVIDERS: PCP Student in an Organized Health Care Education/Training Program; Referring Provider Student in an Organized Health Care Education/Training Program | DX: M17.11 Unilateral primary osteoarthritis, right knee (principal); M17.12 Unilateral primary osteoarthritis, left knee; M76.32 Iliotibial band syndrome, left leg; M70.62 Trochanteric bursitis, left hip | CPT/HCPCS: 20610; J1010 ==

== ENCOUNTER → 2024-08-18 08:17 | Outpatient (BNVA) | payer MEDICARE, SELFPAY | PROVIDERS: PCP Student in an Organized Health Care Education/Training Program; Referring Provider Student in an Organized Health Care Education/Training Program; Visit Provider Podiatrist | DX: M67.01 Short Achilles tendon (acquired), right ankle (principal); M76.61 Achilles tendinitis, right leg; M21.41 Flat foot [pes planus] (acquired), right foot; M21.42 Flat foot [pes planus] (acquired), left foot; M76.821 Posterior tibial tendinitis, right leg; M76.822 Posterior tibial tendinitis, left leg; M20.11 Hallux valgus (acquired), right foot; M20.21 Hallux rigidus, right foot; M20.41 Other hammer toe(s) (acquired), right foot; L84 Corns and callosities; M20.42 Other hammer toe(s) (acquired), left foot; M79.671 Pain in right foot; M79.672 Pain in left foot; M20.12 Hallux valgus (acquired), left foot | CPT/HCPCS: 99214 ==

== ENCOUNTER → 2024-10-08 08:15 | Outpatient (BNVA) | payer MEDICARE, SELFPAY | PROVIDERS: PCP Nurse Practitioner Adult Health; Referring Provider Student in an Organized Health Care Education/Training Program; Visit Provider Podiatrist | DX: M67.01 Short Achilles tendon (acquired), right ankle (principal); M76.61 Achilles tendinitis, right leg; M21.41 Flat foot [pes planus] (acquired), right foot; M21.42 Flat foot [pes planus] (acquired), left foot; M76.821 Posterior tibial tendinitis, right leg; M76.822 Posterior tibial tendinitis, left leg; M20.21 Hallux rigidus, right foot; M20.22 Hallux rigidus, left foot; M20.41 Other hammer toe(s) (acquired), right foot; L84 Corns and callosities; M20.11 Hallux valgus (acquired), right foot; M20.12 Hallux valgus (acquired), left foot; M20.42 Other hammer toe(s) (acquired), left foot | CPT/HCPCS: 99213 ==

== ENCOUNTER 2024-11-09 16:04 | Outpatient (CLI) | payer MEDICARE, SELFPAY ==
--- NOTE | 2024-11-09 15:29 | DI.RAD_ITS ---
Exam(s) XR SACRUM COCCYX EXAM: XR SACRUM COCCYX CLINICAL HISTORY: W19.XXA Unspecified fall, R/O fracture. TECHNIQUE: 2D digital imaging was performed. COMPARISON: No exams were available for comparison FINDINGS: 3 views There is no obvious sacral fracture. There is chronic advanced disc space narrowing at L5-S1 level noted. No listhesis at this level. So me facet arthropathy noted at L5-S1. Sacroiliac joints appear unremarkable. Incidentally noted is a calcific density measuring 6 x 4 mm on the right side at the lower L4 level. Cannot exclude the possibly that this is a calculus in the right ureter at this level. IMPRESSION: No obvious sacral fracture. Other findings as above. DATA REPOSITORY: RADIATION DOSE DELIVERED:
--- NOTE | 2024-11-09 15:29 | DI.RAD_ITS ---
Exam(s) XR LUMBAR SPINE COMPLETE EXAM: XR LUMBAR SPINE COMPLETE CLINICAL HISTORY: W19.XXA Unspecified fall, R/O fracture after fall. TECHNIQUE: 2D digital imaging was performed. COMPARISON: CR XR DEXA BONE DENSITY W/WO SYEDA from 05/31/2020 FINDINGS: Five views. There is a compression fracture of superior endplate of L2 with approximately 10-20 percent height lo ss of the L2 vertebral body. No retropulsed fragment. No other compression fractures nor significan t listhesis. There is mild disc space narrowing at each level in the lumbar spine and more prominent disc space narrowing at L5-S1 level. There is mild multilevel facet arthropathy. There is degenerative scoliosis convex left. Sacroiliac joints appear unremarkable. No obvious sacral fracture. IMPRESSION: There is compression fracture at the superior endplate of L2 vertebral body with approximately 10-20 percent height loss of the L2 vertebral body. There is no listhesis. There is no obvious posterior retropulsion of the posterior cortex. DATA REPOSITORY: RADIATION DOSE DELIVERED:
== END 2024-11-09 16:24 ==
LOC: DI 16:05
PROVIDERS: PCP Nurse Practitioner Adult Health; Visit Provider Family Medicine
DX: W19.XXXA Unspecified fall, initial encounter (principal); S32.020A Wedge compression fracture of second lumbar vertebra, initial encounter for closed fracture
CPT/HCPCS: 72110; 72220

== ENCOUNTER → 2024-11-19 09:56 | Outpatient (BNVA) | payer MEDICARE, SELFPAY | PROVIDERS: PCP Nurse Practitioner Adult Health; Referring Provider Nurse Practitioner Adult Health; Visit Provider Student in an Organized Health Care Education/Training Program | DX: M17.0 Bilateral primary osteoarthritis of knee (principal) | CPT/HCPCS: 20610; J1010 ==

== ENCOUNTER → 2024-12-01 13:51 | Outpatient (BNVA) | payer MEDICARE, SELFPAY | PROVIDERS: PCP Nurse Practitioner Adult Health; Referring Provider Nurse Practitioner Adult Health; Visit Provider Podiatrist | DX: M67.01 Short Achilles tendon (acquired), right ankle (principal); M54.30 Sciatica, unspecified side; M79.671 Pain in right foot; M76.61 Achilles tendinitis, right leg; M21.41 Flat foot [pes planus] (acquired), right foot; M21.42 Flat foot [pes planus] (acquired), left foot; M76.821 Posterior tibial tendinitis, right leg; M76.822 Posterior tibial tendinitis, left leg; M20.10 Hallux valgus (acquired), unspecified foot; M21.619 Bunion of unspecified foot; M20.21 Hallux rigidus, right foot; M20.22 Hallux rigidus, left foot; M20.41 Other hammer toe(s) (acquired), right foot; L84 Corns and callosities; S92.511A Displaced fracture of proximal phalanx of right lesser toe(s), initial encounter for closed fracture; X58.XXXA Exposure to other specified factors, initial encounter | CPT/HCPCS: 99213 ==

== ENCOUNTER 2024-12-17 00:29 | Outpatient (CLI) | payer MEDICARE, SELFPAY ==
--- NOTE | 2024-12-17 07:45 | DI.RAD_ITS ---
Exam(s) XR TOE RT FIFTH EXAM: XR TOE RT FIFTH CLINICAL HISTORY: Right fifth toe fracture,f/u,s92.511a. TECHNIQUE: 2D digital imaging was performed. COMPARISON: CR XR FOOT RT COMPLETE from 05/19/2024 FINDINGS: BONES: No acute fracture is present. No bony destructive lesion is seen. JOINTS: No dislocation present. Advanced degenerative changes at the 1st MTP joint. Mild hallux teresa kentrell. SOFT TISSUE: Normal. IMPRESSION: Degenerative changes of 1st MTP joint. No evidence of a 5th toe fracture. DATA REPOSITORY: RADIATION DOSE DELIVERED:
== END 2024-12-17 00:49 ==
LOC: DI 00:29
PROVIDERS: PCP Nurse Practitioner Adult Health; Visit Provider Podiatrist
DX: S92.511D Displaced fracture of proximal phalanx of right lesser toe(s), subsequent encounter for fracture with routine healing (principal); X58.XXXD Exposure to other specified factors, subsequent encounter; M67.01 Short Achilles tendon (acquired), right ankle; M54.30 Sciatica, unspecified side; M79.671 Pain in right foot; M76.61 Achilles tendinitis, right leg; M21.41 Flat foot [pes planus] (acquired), right foot; M21.42 Flat foot [pes planus] (acquired), left foot; M76.821 Posterior tibial tendinitis, right leg; M76.822 Posterior tibial tendinitis, left leg; M20.21 Hallux rigidus, right foot; M20.22 Hallux rigidus, left foot; M20.41 Other hammer toe(s) (acquired), right foot; L84 Corns and callosities
CPT/HCPCS: 99213; 73660

== ENCOUNTER 2025-03-22 01:53 | Outpatient (CLI) | payer MEDICARE, SELFPAY ==
[2025-03-22 13:59] LABS: HCT 42.2 % (36.0-46.0); HGB 13.9 g/dL (11.2-15.7); MCH 29.0 pg (27.0-33.0); MCHC 32.9 % (32.0-36.0); MCV 88 fL (80-95); MPV 11.1 fL (8.0-11.0); Platelet Count 226 10^3/uL (130-400); RBC 4.79 10^6/uL (3.93-5.22); RDW 13.2 % (11.7-14.6); RDW-SD 43.0 fL; WBC 6.02 10^3/uL (4.4-10.8)
[2025-03-22 14:11] LABS: Anion Gap 7.0 mmol/L (3-11); BUN 24 mg/dL (7-18); CO2 28.0 mmol/L (21.0-32.0); Calcium 9.3 mg/dL (8.5-10.1); Chloride 102 mmol/L (98-107); Estimated GFR 67.08 (mL/min/1.73m2); Glucose 89 mg/dL (74-106); Potassium 5.1 mmol/L (3.5-5.1); Sodium 137 mmol/L (136-145)
[2025-03-22 14:35] LABS: Hemoglobin A1C 5.6 % (<5.7)
== END 2025-03-22 01:54 | disposition home or self-care (01) ==
LOC: LBO 01:53
PROVIDERS: Family Medicine; PCP Nurse Practitioner Adult Health; Visit Provider Student in an Organized Health Care Education/Training Program
DX: R73.03 Prediabetes (principal); M17.12 Unilateral primary osteoarthritis, left knee; Z01.818 Encounter for other preprocedural examination
CPT/HCPCS: 80048; 85027; 99024; 73560; 77073; 83036

== ENCOUNTER 2025-03-22 10:55 | Outpatient (CLI) | payer MEDICARE, SELFPAY ==
--- NOTE | 2025-03-22 10:52 | DI.RAD_ITS ---
Exam(s) XR KNEE LT 1V XR STANDING ALIGNMENT EXAM: XR STANDING ALIGNMENT CLINICAL HISTORY: PRE OP L TKA. TECHNIQUE: 2D digital imaging was performed. Standing AP views were performed from the pelvis through the ankles. COMPARISON: CR XR KNEE LT 1V from 03/22/2025 FINDINGS: BONES: No acute fracture is present. No bony destructive lesion is seen. Leg length discrepancy: The left femoral head projects approximately 1 cm superior to the right. JOINTS: Knees: Severe narrowing of the lateral femoral tibial joint spaces with periarticular spurring. The ankle joints are unremarkable. The hip joints are unremarkable. SOFT TISSUE: Normal. IMPRESSION: Severe degenerative changes of the lateral femoral tibial joints of both knees.. 1 cm overall leg length discrepancy. DATA REPOSITORY: RADIATION DOSE DELIVERED:
== END 2025-03-22 10:56 | disposition home or self-care (01) ==
LOC: DIORS 11:11
PROVIDERS: PCP Nurse Practitioner Adult Health; Visit Provider Physician Assistant
DX: Z01.818 Encounter for other preprocedural examination (principal); M17.12 Unilateral primary osteoarthritis, left knee
CPT/HCPCS: 99024; 73560; 77073

== ENCOUNTER 2025-03-31 07:26 | Day surgery (SDC) | payer MEDICARE, SELFPAY ==
[2025-03-31] VITALS (19 sets, daily range): BP systolic 80–114; BP diastolic 38–59; PULSE 66–89; RESP 14–26; TEMP 36.2–36.7; O2SAT 94–98; BMI 29.8
--- NOTE | 2025-03-31 07:19 | PDOC.DSDIS_ITS ---
Date of service: 03/31/25 Discharge Plan Disposition Patient Disposition: Home Condition: Good Discharge Details Reason For Visit: L TKR Attending Provider: John Ying Primary Care Provider: Nanci Taylor Home Meds and New Rx's Prescriptions: New celecoxib 200 mg capsule 200 mg PO BID Qty: 60 0RF aspirin 81 mg tablet,delayed release (DR/EC) 81 mg PO BID Qty: 60 0RF acetaminophen 500 mg tablet 1,000 mg PO TID Qty: 90 3RF dexamethasone 4 mg tablet 4 mg PO DAILY Qty: 2 0RF docusate sodium 100 mg capsule 100 mg PO BID PRNQty: 28 0RF gabapentin 300 mg capsule 300 mg PO QHS Qty: 14 0RF oxycodone 5 mg tablet 5 mg PO Q4H PRNQty: 18 0RF Continued diphenhydramine HCl 50 mg tablet 50 mg PO BID escitalopram oxalate [Lexapro] 10 mg tablet 20 mg PO DAILY Patient Comments: [facility], started 01/09/24.HE lorazepam [Ativan] 0.5 mg tablet 0.5 mg PO DAILY PRN Patient Comments: [facility], 01/09/24 RX'd #5.HE L'Evate You PO Patient Comments: 1 scoop per day.HE valacyclovir [Valtrex] 1 gram tablet 1,000 mg PO PRN MDD 2g PRN (Reason: hsv outbreak) Qty: 20 2RF Collagen Skin Renewal 30-833.3 mg tablet 1 tab PO DAILY albuterol sulfate [ProAir HFA] 90 mcg/actuation HFA aerosol inhaler 2 puff inhalation Q6H PRN (Reason: shortness of breath or wheezing) Qty: 8.5 0RF Rx Instructions: Substitutions or generic OK; dispense as best filled per insurance... vitamin K2 40 mcg tablet 100 mcg PO DAILY fluticasone propionate 50 mcg/actuation spray,suspension 1 spray MARLENY DAILY PRN Rx Instructions: administer into each nostril nmrnuso-[id number]-snkj-copper-vikash [Citracal-D3 Maximum Plus] 325 mg-12.5 mcg -2.75 mg tablet 4 tab PO DAILY Rx Instructions: 1300mg calcium/ 2000 D-3 magnesium 200 mg tablet 200 mg PO BID Patient Comments: Pt unsure of dosing.HE omeprazole 20 mg capsule,delayed release(DR/EC) 20 mg PO DAILY Rx Instructions: per surg cholecalciferol (vitamin D3) 50 mcg (2,000 unit) capsule 50 mcg PO DAILY Centrum Silver 1 EACH tablet 1 ea PO DAILY Probiotic 1 EACH capsule 1 ea PO DAILY ketoconazole 2 % shampoo 1 applic topical ONCE Patient Comments: Topical, daily, repeat if not resolved after two weeks, per [facility] E[facility] note from 03/19/24.HE cetirizine [Allergy Relief (cetirizine)] 10 mg tablet 10 mg PO PRN Discontinued acetaminophen 500 mg capsule 500 mg PO Q6H PRN Discharge Instructions Additional Instructions: Total Knee Discharge Instructions Activity: The most important activity is to walk and to work on gentle motion (both flexion and extension). You should try to take short walks a few times a day. It is important that when resting you work on keeping the knee straight. Avoid putting a pillow behind the knee as this will encourage flexion. Work on range of motion exercises as provided by Physical Therapy. - Start outpatient physical therapy within 2 weeks. - You should wear the KAILEY hose on both legs for 2 weeks. You may remove these at night. You may also use any compression sock in place of the KAILEY hose. - Utilize [employer] to review exercises, see videos on exercises and obtain basic information pertaining to your surgery and your recovery. Dressing: Remove the Stanley wrap by 2 days after your surgery and put on the KAILEY stocking given to you from the hospital. Keep the surgical dressing (underneath the STANLEY wrap) in place for at least one week. After the first week it may be removed and replaced with light gauze and tape or nothing. The wound and dressing may get wet after 3 days but avoid soaking the dressing or otherwise it will need to be changed. Many people prefer covering the dressing with cling wrap (saran wrap) to minimize it from getting soaked. If it gets wet, just pat dry. If it starts to peel off then it will need to be changed. Medications: - You should take Tylenol and anti-inflammatory Celebrex as your primary pain control medications. If the Celebrex is too expensive or not covered, please call the office for another alternative (Advil/Ibuprofen or Naproxen/Aleve) - You have been prescribed a stronger pain medication Oxycodone for breakthrough pain, take as needed as prescribed. - You will continue your stomach acid reduction agent omeprazole to help reduce stomach acid and reflux. - You have been prescribed Gabapentin to take at night for restlessness and nerve pain. - You will be taking Aspirin 81mg twice a day for DVT prevention unless instruct ed otherwise. - You have also been prescribed Decadron to take to control post-operative nausea and pain. You will start this tomorrow. - If you have constipation you should take Colace or Miralax (both fywf-lzk-bttogko). It takes most people 3-4 days to have a bowel movement. Follow-up: 2 weeks If you have any acute concerns or questions, please do not hesitate to contact the office at [phone]. You may contact Dr. Ying with any questions after hours through the hospital at [phone] or on his cell phone at [phone]. Referrals: John Ying MD [ [facility] STAFF PHYSICIAN, Orthopaedic Surgical] Equipment/Supplies: Walker Activity:: Activity as Tolerated Shower/Bathe:: 72 hours Diet:: As Tolerated Discharge Orders Discharge Orders: Discharge Order (Routine); Ordered 03/31/25 Ordered By: Vicente Morales DS: Diagnosis Discharge Diagnosis (1) Unilateral primary osteoarthritis, left knee: Status: Acute
--- NOTE | 2025-03-31 08:05 | W.ANESPRE ---
General Info Date of Service Date Performed: 03/31/25 Height: 5 ft 8 in Weight: 89.1 kg Body Mass Index (BMI): 29.8 Surgical Procedure: Operation Date: 03/31/25 09:25 Proposed Procedure Side Surgeon p Knee Total Arthroplasty w/OrthAlign, Cementless CR Left John Ying MD Meds Allergies and Home Medications Allergies Allergy/AdvReac Type Severity Reaction Status Date / Time hydrocodone Allergy Itching Verified 03/31/25 07:34 lactose AdvReac Intermediate Diarrhea Verified 03/31/25 07:35 Home Medication ?Medication ?Instructions ?Recorded Lactobacillus acidophilus 10 1 ea PO DAILY 08/02/15 billion cell capsule (Probiotic) ycjjxyka-asa-drffb acid 0.4 1 ea PO DAILY 08/02/15 mg-lycopene 300 mcg-lutein 250 mcg tablet (Centrum Silver) vitamin K2 40 mcg tablet 100 mcg PO DAILY 04/29/20 fluticasone propionate 50 1 spray intranasal DAILY PRN 01/09/22 mcg/actuation nasal spray,suspension calcium 325 mg-vit D3 12.5 4 tab PO DAILY 11/29/23 mcg-zinc 2.75 bf-wwnxsc-asqqavggo tablet (Citracal-D3 Maximum Plus) cetirizine 10 mg tablet (Allergy 10 mg PO PRN 11/29/23 Relief (cetirizine)) magnesium 200 mg tablet 200 mg PO BID 11/29/23 omeprazole 20 mg capsule,delayed 20 mg PO DAILY 11/29/23 release cholecalciferol (vitamin D3) 50 50 mcg PO DAILY 12/10/23 mcg (2,000 unit) capsule L'Evate You PO 01/17/24 escitalopram oxalate 10 mg tablet 20 mg PO DAILY 01/17/24 (Lexapro) lorazepam 0.5 mg tablet (Ativan) 0.5 mg PO DAILY PRN 01/17/24 valacyclovir 1 gram tablet 1,000 mg PO PRN PRN hsv outbreak 02/02/24 (Valtrex) #20 tab-caps ketoconazole 2 % shampoo 1 applic topical ONCE 04/02/24 albuterol sulfate 90 mcg/actuation 2 puff inhalation Q6H PRN 03/15/25 aerosol inhaler (ProAir HFA) shortness of breath or wheezing #8.5 grams acetaminophen 500 mg tablet 1,000 mg (2 x 500 mg) PO TID #90 03/31/25 tabs aspirin 81 mg tablet,delayed 81 mg PO BID #60 tabs 03/31/25 release celecoxib 200 mg capsule 200 mg PO BID #60 caps 03/31/25 dexamethasone 4 mg tablet 4 mg PO DAILY #2 tabs 03/31/25 docusate sodium 100 mg capsule 100 mg PO BID PRN #28 caps 03/31/25 gabapentin 300 mg capsule 300 mg PO QHS #14 caps 03/31/25 lavender oil 80 mg capsule 160 mg PO DAILY 03/31/25 (CalmAid) oxycodone 5 mg tablet 5 mg PO Q4H PRN #18 tabs 03/31/25 Current Visit Medications: Current Medications Generic Name Dose Route Start Last Admin Trade Name Freq PRN Reason Stop Dose Admin Acetaminophen 1,000 mg 03/31/25 06:00 Acetaminophen 500 Mg Tab PO 03/31/25 23:59 PREOP HERMAN Acetaminophen 1,000 mg 03/31/25 07:43 Acetaminophen 500 Mg Tab PO 04/30/25 07:42 TID PRN PRN Analgesia Celecoxib 400 mg 03/31/25 06:00 Celecoxib 200 Mg Cap PO 03/31/25 23:59 PREOP HERMAN Docusate Sodium 100 mg 03/31/25 07:17 Docusate Sodium 100 Mg Cap PO 04/30/25 07:16 BID PRN PRN Constipation Gabapentin 300 mg 03/31/25 06:00 Gabapentin 300 Mg Cap PO 03/31/25 23:59 PREOP HERMAN Ringer's Solution 1,000 mls @ 80 mls/hr 03/31/25 06:00 IV 03/31/25 23:59 INFUSION HERMAN Cefazolin Sodium/Dextrose 2 gm in 50 mls @ 100 mls/hr 03/31/25 06:00 Ancef Duplex IVPB 03/31/25 23:59 PREOP HERMAN Tranexamic Acid/Sodium Chloride 1,000 mg in 100 mls @ 600 mls/hr 03/31/25 06:00 IVPB 03/31/25 23:59 PREOP HERMAN IV Miscellaneous Supplies 1 each 03/31/25 06:00 Iv Access IV 03/31/25 23:59 DIRECTED HERMAN Oxycodone HCl 0 mg 03/31/25 07:17 Oxycodone 5 Mg Tab PO 04/30/25 07:16 Q3H PRN PRN Pain Polyethylene Glycol 17 gm 03/31/25 07:17 Polyethylene Glycol 3350 17 Gm Packet PO 04/30/25 07:16 BID PRN PRN Constipation Sodium Chloride 0 ml 03/31/25 06:00 Normal Saline Flush 10 Ml Syr IV 03/31/25 23:59 PRN PRN Sodium Chloride 0 ml 03/31/25 06:00 Normal Saline 10 Ml Vial IJ 03/31/25 23:59 DIRECTED PRN Sterile Water 0 ml 03/31/25 06:00 Water,Injection,Sterile 10 Ml Vial IJ 03/31/25 23:59 DIRECTED PRN PFSH Active Problems Active Problems: Problem Status Onset Code Fracture of proximal phalanx of lesser toe of right foot Acute S92.511A Degenerative joint disease of right knee Acute M17.11 Unilateral primary osteoarthritis, left knee Acute M17.12 Compression fracture of L2 lumbar vertebra Acute S32.020A Fall Acute W19.XXXA Sciatica Acute M54.30 Achilles tendon contracture, right Acute M67.01 Achilles tendinitis, right leg Acute M76.61 Greater trochanteric bursitis of left hip Acute M70.62 Iliotibial band syndrome of left side Acute M76.32 Corns and callosities Acute L84 Hammertoe of right foot Acute M20.41 Hallux rigidus of both feet Acute M20.21, M20.22 Hallux abductovalgus with bunions Acute M20.10, M21.619 Posterior tibial tendon dysfunction (PTTD) of both lower extremities Acute M76.821, M76.822 Pes planus of both feet Acute M21.41, M21.42 Prediabetes Acute R73.03 Elevated hemoglobin A1c Acute R73.09 Skin lesion of back Acute L98.9 Foot pain, bilateral Acute M79.671, M79.672 Anxiety about health Acute R45.89 Sciatica without back pain Acute M54.30 Lipoma Acute D17.9 Actinic keratitis Acute H16.139 Skin lesion of right leg Acute L98.9 KIRK (obstructive sleep apnea) Chronic G47.33 GERD (gastroesophageal reflux disease) Chronic K21.9 Medical History Medical History WILLIAM (generalized anxiety disorder) 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 She has had deaths in the family (ex fianc?) (stepson , [place]) (10 and son killed in MVA) .. 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 ABx started, poor tolerance pyridium.. awaiting C&S Stress due to illness of family member Sister with breast cancer (complicated by mental illness) ([place]) Stressful life event affecting family Health care maintenance Manages HCM closely, incl Life Screening Testing. Temporomandibular joint disorders Right condyle displacement Contusion of foot, right Osteoarthritis of left knee depo medrol 07/16/24 Allergic rhinitis due to allergen Pt does NOT have asthma. Family history of diabetes mellitus All 3 siblings Laryngospasm Exacerbated with crying (Hx allergy testing: Dx of laryngospasm, NOT asthma) which has been daily due to dogs deaths and current dog with cancer. 01/2022. ik Chronic rhinitis Post-nasal drip KIRK (obstructive sleep apnea) Re-started CPAP (2019) .. Hx not using CPAP Machine GERD (gastroesophageal reflux disease) Cataract Tracy 2019 Herpes labialis (08/02/15) Osteopenia (08/02/15) Surgical History Surgical History Status post cataract extraction and insertion of intraocular lens of right eye (12/15/18) Status post cataract extraction and insertion of intraocular lens of left eye (12/01/18) History of photorefractive keratectomy (PRK) S/P LASIK surgery of both eyes H/O tubal ligation H/O breast augmentation 1990, 2007 Tobacco Smoking/Tobacco Use Status: Former Tobacco Use Passive smoking exposure: No Alcohol Alcohol Intake: current Alcohol intake frequency: a few times a month Alcohol type: wine Substance Use Substance use: Never Substance use type: does not use Vital Signs and Lab Results Vital Signs Most Recent Vital Signs in EMR: Most Recent Vital Signs Temp Pulse Resp BP Pulse Ox 36.6 C 89 16 114/59 L 97 03/31/25 07:56 03/31/25 07:56 03/31/25 07:56 03/31/25 07:56 03/31/25 07:56 Lab Results Complete Blood Count: WBC, (4.4-10.8) 6.02 10^3/uL 03/22/25, 11:00 RBC, (3.93-5.22) 4.79 10^6/uL 03/22/25, 11:00 Hgb, (11.2-15.7) 13.9 g/dL 03/22/25, 11:00 Hct, (36.0-46.0) 42.2 % 03/22/25, 11:00 Plt Count, (130-400) 226 10^3/uL 03/22/25, 11:00 Complete Metabolic Panel: Sodium, (136-145) 137 mmol/L 03/22/25, 11:00 Potassium, (3.5-5.1) 5.1 mmol/L 03/22/25, 11:00 Chloride, (98-107) 102 mmol/L 03/22/25, 11:00 Carbon Dioxide, (21.0-32.0) 28.0 mmol/L 03/22/25, 11:00 BUN, (7-18) 24 mg/dL H 03/22/25, 11:00 Creatinine, (0.55-1.02) 0.9 mg/dL 03/22/25, 11:00 Est GFR (CKD-EPI 2020), (mL/min/1.73m2) 67.08 03/22/25, 11:00 Calcium, (8.5-10.1) 9.3 mg/dL 03/22/25, 11:00 Glucose, (74-106) 89 mg/dL 03/22/25, 11:00 Hemoglobin A1c, (<5.7) 5.6 % 03/22/25, 11:00 Imaging and Studies Imaging and Studies Study information below may be from another EMR and interpreted by another provider. Please see original notes in EMR for more complete details. EKG Summary: EKG PATIENT NAME: Nicole Vicente UNIT #: [id number] ORDERING PROVIDER: Gem Paiz PRIMARY CARE PROVIDER: MARY ALICE OLMOS DO DATE/TIME OF SERVICE: 03/04/22 1311 : 1950 PERFORMING LOCATION: ER APPROVED REPORT Exam: Resting ECG Reason for Exam: tachycardic Patient Location: E HR:97 bpm ECG Measurements Heart Rate 97 AXIS SD 138 P 81 QRSd 109 QRS 0 QT 354 T19 QTc 450 Conclusion Sinus rhythm. Low voltage, extremity leads. IVCD <Electronically signed by TELMA MANRIQUEZ MD in OV> E-Sign Date: 03/04/22 E-Sign Time: 1350 ADDENDUM APPROVED REPORT Exam: Resting ECG Reason for Exam: tachycardic Patient Location: E HR:97 bpm ECG Measurements Heart Rate 97 AXIS SD 138 P 81 QRSd 109 QRS 0 QT 354 T19 QTc 450 Conclusion Sinus rhythm. Low voltage, extremity leads. IVCD I have reviewed and I agree with the emergency room physician's ECG interpretation. Electronically signed by: <Electronically signed by Chantelle Busby M.D. in [place]> 03/06/22 0827 Cosigned by: Anesthesia Assessment and Plan Anesthesia History Personal History: No History of Anesthesia Complications Family History: No Family History of Anesthesia Complications Exercise Tolerance Exercise Tolerance: Metabolic Equivalents>4 Pertinent Negatives Pertinent Negatives: No Major Cardiovascular Symptoms or Complaints, No Major Pulmonary Symptoms or Complaints and No History of CVA/TIA Cardiac & Pulmonary Exam Cardiac Exam: Normal S1/S2 Heart Sounds Pulmonary Exam: Clear Bilateral Breath Sounds Implantable Cardiac Device Does patient have a Pacemaker or an ICD?: No Airway Exam Known Difficult Airway: No Mallampati Class: 3 Mouth Opening: Normal (> 3cm) Thyromental Distance: Less than 3 cm Neck Range of Motion: Limited ROM Neck Circumference: Normal Teeth Condition: Normal Dentition Tooth Numbering:  1. Missing molar ASA Classification ASA Score: ASA 2 Emergency Case?: No NPO Status NPO Status: NPO Clears >2 hours, Solids >8 hours Anesthesia Plan Resuscitation Status: Full Code Anesthesia Technique: Spinal Anesthesia Airway Planned: Natural Airway Pain Management: Surgeon and patient request nerve block Monitors Used: Standard Monitors
[2025-03-31] MEDS: Gabapentin 300 MG CAP PO (08:17)
[2025-03-31] MEDS: Celecoxib 200 MG CAP 400 MG PO (08:17)
[2025-03-31] MEDS: Acetaminophen 500 MG TAB 1000 MG PO (08:18)
[2025-03-31] MEDS: Lactated Ringers 1,000 ML 80 ML IV (08:30)
--- NOTE | 2025-03-31 09:10 | W.ANESNERVE ---
Nerve Block Single Injection Procedure Date and Time Date Performed: 03/31/25 Procedure Start: 08:57 Location Where Procedure Performed Procedure Location: Day Surgery Unit Reason Performed: Postoperative Analgesia Requesting Provider: John Ying Timeout Performed Timeout Performed: Yes Monitoring Used ECG, Blood Pressure and SpO2 Sterility Sterility: Hand Hygiene, Surgical Cap, Surgical Mask, Sterile Gloves and Chlorhexidine Sedation Given During Procedure Sedation Given (Indicate Dose Given): Precedex IV Dose:: 12 mcg Patient Mental Status Patient Mental Status: Sedate with meaningful communication Nerve Block 1st Nerve Block: Laterality: Left Block Type: Adductor Canal Ultrasound Image Saved?: Yes Needle / Catheter Used: 100mm SonoPlex II Local Anesthetic Bolus (Indicate Dose Given): Lidocaine used for local infiltration of skin, Injected in 3-5ml increments after negative blood aspiration, Bupivacaine 0.25% Dose:: 10 ml, Exparel Dose:: 10 ml and Chloroprocaine 3% Dose:: for skin infiltration Additives (Indicate Dose Given): None Ultrasound: Sterile probe cover and gel used Nerve Stimulator: Supplement to Ultrasound use and Expected parasthesia or motor response elicited Paresthesia: Left (that went down to my yan appeared from stimulator, pulled back on needle and resolved) Paresthesia Duration: Transient Procedure Tolerated: No Complications and Patient tolerated well Procedure Outcome: Successful Performed By: Tray Larios 2nd Nerve Block: Laterality: Left Block Type: Other (Anterior Femoral Cutaneous Nerve (AFCN)) Ultrasound Image Saved?: Yes Needle / Catheter Used: 100mm SonoPlex II Local Anesthetic Bolus (Indicate Dose Given): Bupivacaine 0.25% Dose:: 7 ml (in 1-2 ml increments) and Chloroprocaine 3% Dose:: skin infiltration Additives (Indicate Dose Given): None Ultrasound: Sterile probe cover and gel used Nerve Stimulator: Supplement to Ultrasound use and No twitch or parasthesia noted < 0.5 mA Paresthesia: None Procedure Tolerated: No Complications and Patient tolerated well Procedure Outcome: Successful Performed By: Tray Larios
[2025-03-31] MEDS: ceFAZolin 2 GM/50 ML BAG IVPB (09:24)
[2025-03-31] MEDS: TRANEXAMIC ACID/SOD. CHL. 1,000 MG/100 ML BAG 600 MG IVPB (09:30)
--- NOTE | 2025-03-31 10:44 | W.PM.OP ---
Operative Note Operative Note PRE-OP DIAGNOSIS: Left Knee Osteoarthritis with Valgus Deformity POST-OP DIAGNOSIS: same PROCEDURE: Left Total Knee Replacement SURGEON: John Ying DRAG OUT MAN: Kyle Morales ANESTHESIA TYPE: Spinal Refer to Anesthesia Record ESTIMATED BLOOD LOSS: 50 PATHOLOGY: none sent TOURNIQUET TIME: 0 COMPLICATIONS: None Patient was transported to: PACU Patient's condition: stable Implants: 1. Depuy Attune Cementless Cruciate Retaining Femoral Component, Size 5 2. Depuy Attune Cementless Fixed Bearing Tibial Component, Size 5 3. Depuy Attune 5x7mm CR/FB Poly Indications: I have seen Azucena in clinic for symptoms of knee arthritis, confirmed with radiographic findings. She has exhausted nonoperative methods and was having significant limitations in daily function and desired better function and less pain. I discussed the technical details of a knee replacement. I explained the risks of the procedure to include, but not limited to, bleeding, infection, pain, stiffness, fracture, damage to nerves and vessels, damage to muscles and tendons, loosening, need for repeat procedure, blood clot and cardiopulmonary demise. Despite these risks, Azucena elected to proceed. Findings: There was significant signs of arthritis throughout the knee, mostly invovling the lateral compartment. Procedure Description: Azucena was greeted in the preoperative holding area where the correct side was identified and marked. The consent was reviewed with the patient and signed. The history and physical was updated. All questions were answered. Preoperative medications were administered: Acetaminophen 1000mg, Celebrex 400mg, and Gabapentin 300mg. An adductor canal block was then administered by the anesthesia team in the DSU. She was taken back to the operating room. A spinal anesthestic was then administered. The patient was placed into the supine position on the operating room table. Posts were placed for positioning during the procedure. All bony prominences were well padded. Prophylactic antibiotics in the form of Cefazolin were administered. 1g of Tranxemic Acid was given intravenously within 30 minutes of incision. The left leg was then prepped with Chloraprep and draped in a standard fashion with impervious stockinette. A second prep with Chloraprep was performed prior to application of Iodine impregnated skin protection. A timeout to confirm correct identity, side and site, procedure, allergies, anesthesia, and medical concerns was performed. With the knee in some flexion, a midline incision was made overlying the knee. Full thickness skin flaps were raised once the extensor mechanism was encountered. These were raised medially and laterally. Any bleeding was controlled with electrocautery. Once the extensor mechanism was fully exposed, a medial parapatellar arthrotomy was performed in a flexed position. All bleeding from the arthrotomy and the geniculate arteries was coagulated. A medial subperiosteal peel was performed with electrocautery to the midcoronal plane. The fat pad was removed while keeping the patellar tendon protected. The anterior distal femur synovium was removed for later visualization. The ACL and PCL were resected and the anterior horn of the lateral meniscus was transected. The knee was then flexed with the patella everted. Large osteophytes from the tibia were removed. Large osteophytes from the femur were removed. Using a step drill, and based on preoperative templating, the femoral canal was entered. This was done with a step drill without any difficulty. The intramedullary distal femoral cut guide was inserted, set to a 6 degree valgus cut and 9mm cut thickness. The distal femoral cut guide was then held in position and pinned. With the soft tissues protected, the distal cut was performed. This was passed over a few times to ensure a planar cut. I then turned attention to the tibia. The extramedullary guide was placed onto the leg. The distal aspect was slid medial to adjust for position of center of ankle and stay in line with shaft of the tibia. Approximately 3-5 degrees of posterior slope was kept in the proximal cutting guide. The center of the guide was aligned with the PCL. The stylus was used to assess cut thickness. The lateral side, most involved side, was set for a 5mm cut, corresponding to 8mm medially. This was then held in position and pinned into place with 2 additional pins and a cross pin for stability. The medial and lateral collateral ligaments were protected and the cut was performed. With this completed, it was assessed and noted to be of appropriate dimensions. The guide was removed. A spacer block was inserted and the knee was brought into extension. The 7mm spacer block provided full extension, without hyperextension and with stability of both the medial and lateral collateral ligaments was assessed. The pins from the femur and the tibia were then removed. The distal femur was then sized. The anterior stylus was placed onto the lateral ridge of the anterior femur. This indicated a size 5 femur. The external rotation of the guide was adjusted to 0 degrees to match the epicondylar axis, perpendicular to Ana Lilia?s line. The 4-in-1 cutting guide was the placed. The posterior medial femur cut was evaluated and appeared of good thickness. The spacer block was inserted underneath the cutting guide and stability was confirmed in 90 degrees of flexion. An jumana wing was used to confirm appropriate position of the anterior cut to avoid notching. This cutting guide was ensured to be flush on the cut surface and then pinned into place with headed pins. While protecting the soft tissues, quad tendon, and collateral ligaments, the anterior and posterior cuts were performed with a saw. The central two pins were removed and the posterior and anterior chamfers were cut next. The notch-cutting guide was placed. This was pinned to lateralize the femoral component as much as possible while keeping it flush on the cut surface. This was then pinned into position. A reciprocating saw was used to make the notch cut. A rasp smoothed the cut surfaces. The medial and lateral menisci were removed. A trial femoral component was then inserted, impacted down to the cut surfaces, and the lug holes were drilled. A provisional trial tibial component was placed and the knee was brought through range of motion. There was noted to be excellent extension and flexion. There was no significant instability. The patella was tracking without thumbs. A size 7mm polyethylene component provided the best range of motion and stability with less than 2mm gapping with medial and lateral stress and full extension without significant hyperextension. The tibial cut surface was fully exposed. The tibia was then sized as a 5. The tibia had been previously marked during trialing to correspond to the center of the tibial component to help with rotation. The trial was aligned to this kyle, approximately rotated to the medial 1/3rd of the tibial tubercle. The trial was pinned into place. The tibia was prepared with a reamer and a keel punch and lug holes. The trial components were removed. The final components were opened on the back table. The periosteal and capsular tissues, especially posteriorly, around the knee were then systematically injected with a periarticular cocktail consisting of 246mg of Ropivacaine, 0.5mg of Epinephrine, 0.08mg of Clonidine, and 30mg of Ketorolac, diluted to 100cc. On the back table, with the implants opened. The cementless knee components were placed. Starting with the tibial component, the tibia was subluxed anteriorly and the lug holes of the component were lined up. The tibia was then impacted with an impactor and mallet until the tibial component was in contact with the tibia. The final polyethylene component was inserted. Then, the femoral component was inserted. The lug holes were aligned and the component was impacted into position. The knee was irrigated with Surgiphor Betadine solution. This was allowed to sit in the knee for 3 minutes and then it was irrigated out with saline. The patella was tracking with a no-thumbs technique. The capsule was then reapproximated with a No. 1 Vicryl at multiple locations. The capsule was finally closed with a No. 2 Stratafix, barbed suture. Deep tissues were then reapproximated with 0 Vicryl and 2-0 Vicryl. The skin was closed with a running 3-0 Monocryl in a subcuticular fashion. This was reinforced with skin glue. A Mepilex silver dressing was applied along with a [id number] AYSHA wrap. A CryoCuff was applied. Azucena was transferred to the hospital bed without difficulty an suffering no apparent complication. She has a good prognosis. Physical therapy will start today and without restrictions, weight-bearing as tolerated. Aspirin 81mg BID will be used for DVT prophylaxis. Date of Procedure: 03/31/25
[2025-03-31] MEDS: Tranexamic Acid 650 MG TAB 1300 MG PO (12:16)
[2025-03-31] MEDS: oxyCODONE 5 MG TAB PO (12:16)
--- NOTE | 2025-03-31 12:25 | W.ANESPOSTOP ---
Postoperative Evaluation Date, Time and Location Date Performed: 03/31/25 Time Performed: 12:26 Patient Location: Day Surgery Unit Vital Signs Most Recent Imported Vital Signs: Most Recent Vital Signs Temp Pulse Resp BP Pulse Ox 36.6 C 69 14 109/50 L 94 03/31/25 12:17 03/31/25 12:17 03/31/25 12:17 03/31/25 12:17 03/31/25 12:17 Pain Score Most Recent Pain Score: Most Recent Pain Score Pain Level 6 03/31/25 12:17 Assessment Mental Status: Awake (Alert & Oriented to Patient Baseline) Airway and Respiratory Function: Patent airway with normal (patient baseline) respiratory exam Cardiovascular Function: Hemodynamically Stable Hydration Status: Adequately Hydrated Nausea & Vomiting: No Nausea or Vomiting Pain: Pain is Moderate or Severe Postoperative Pain Management: Pain being addressed with medication Peripheral Nerve Block: Regional nerve block not resolved at time of post operative discharge
--- NOTE | 2025-03-31 13:30 | IN_ITS ---
PT Notes Visit Reasons: L TKR Physical Therapy Day Surgery Initial Evaluation Date: 03/31/2025 Referring Doctor: DELFIN Holcomb/Dr. Ying PT Orders: PT CONSULT: PT eval and treat status post Ortho surgery Precautions: WBAT left LE Patient Profile/Admitting Diagnosis: Nicole Winston is a 74-year-old female who presents status post elective left TKA by Dr. Ying on 03/31/2025. Postop uncomplicated PMHX: racture of proximal phalanx of lesser toe of right foot (Acute) Degenerative joint disease of right knee (Acute) DEPO MEDROL 11/19/24; 07/16/24Unilateral primary osteoarthritis, left knee (Acute) DEPO MEDROL 11/19/24Compression fracture of L2 lumbar vertebra (Acute) Fall (Acute) Sciatica (Acute) Achilles tendon contracture, right (Acute) Achilles tendinitis, right leg (Acute) Greater trochanteric bursitis of left hip (Acute) Iliotibial band syndrome of left side (Acute) Corns and callosities (Acute) Hammertoe of right foot (Acute) Hallux rigidus of both feet (Acute) Hallux abductovalgus with bunions (Acute) Posterior tibial tendon dysfunction (PTTD) of both lower extremities (Acute) Pes planus of both feet (Acute) Prediabetes (Acute) Elevated hemoglobin A1c (Acute) Skin lesion of back (Acute) noted by ericka tinoco, requesting FitzpatrickFoot pain, bilateral (Acute) affecting gait - and probably kneesAnxiety about health (Acute) Sciatica without back pain (Acute) Lipoma (Acute) right thigh Actinic keratitis (Acute) right hipSkin lesion of right leg (Acute) Probable jessie keratosis, but inflamed, with pink/red irritation .. recommending excision and Bx .. 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 She has had deaths in the family (ex fianc?) (stepson , [place]) (10 and son killed in MVA) .. 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 ABx started, poor tolerance pyridium.. awaiting C&SStress due to illness of family member Sister with breast cancer (complicated by mental illness) ([place])Stressful life event affecting family Health care maintenance Manages HCM closely, incl Life Screening Testing.Temporomandibular joint disorders Right condyle displacementContusion of foot, right Osteoarthritis of left knee depo medrol 07/16/24Allergic rhinitis due to allergen Pt does NOT have asthma.Family history of diabetes mellitus All 3 siblingsLaryngospasm Exacerbated with crying (Hx allergy testing: Dx of laryngospasm, NOT asthma) which has been daily due to dogs deaths and current dog with cancer. 01/2022. ikChronic rhinitis Post-nasal drip KIRK (obstructive sleep apnea) Re-started CPAP (2019) .. Hx not using CPAP MachineGERD (gastroesophageal reflux disease) Cataract Tracy 2019Herpes labialis (08/02/15) Osteopenia (08/02/15) Surgical History Status post cataract extraction and insertion of intraocular lens of right eye (12/15/18) Status post cataract extraction and insertion of intraocular lens of left eye (12/01/18) History of photorefractive keratectomy (PRK) S/P LASIK surgery of both eyes H/O tubal ligation H/O breast augmentation 1990, 2007 Social History/Home Situation: Patient resides in two-story home 4 steps to enter with 1 rail patient will be staying on the first floor however primary bedroom is on second floor. Patient independent with ADLs and ambulation prior to surgery. Equipment Owned/DME: Fitted for and issued FWW with 5 inch wheels Subjective: Patient reports she has a rolling walker she got from her friend with 3 inch wheels. Objective: [] General Observation: Presented upright with Cryo/Cuff to left knee Mental Status: Alert and oriented x 4, able to follow instructions agreeable to participate in evaluation Pain: 7/10 left knee 20 minutes after meds administered patient states this is tolerable ROM: [] BUE: WNL Right Lower Extremity:WNL Left Lower Extremity:Hip and ankle WNL; knee 0-90 Strength: [] BUE: 5/5 grossly Right Lower Extremity:5/5 Left Lower Extremity: Hip flexion: 3- /5; hip abduction: 2+ /5; hip extension: 3-/5; knee extension: 3 /5; knee flexion: 2+ /5 ankle DF: 4 /5 ; ankle PF:4 /5; strong quad set without compensation, straight leg raise without lag shortened range Sensation: intact Bed Mobility/Transfers: [] Supine to sit Independent Sit to stand SBA Stand to sit SBA Bed to chair SBA with FWW Gait: amb with FWW SBA reciprocal pattern 150 feet pt demonstrates heel strike, decreased knee flexion in swing phase Stairs: 5 stairs with 1 rail contact-guard assist step to pattern verbal cues for sequencing Balance: Static Sitting: Normal Dynamic Sitting good Static Standing: [] Good Dynamic Standing: Fair Special Tests: [] Mobility Limitations Standardized Measure [] [facility] AM-PAC 6 clicks Basic Mobility Inpatient Short Form: [] Raw Score: 23 CMS Score: 11.20% deficit Informed Consent/Education: Patient instructed in purpose of PT consult. Treatment: 48844: Packet containing TKA exercise protocol has been given to patient. Education and training on initial set of 10 reps of exercises that can be done at home have been completed with patient. Assessment: Patient is a 74-year-old female who presents with clinical signs and symptoms consistent with current/admitting diagnoses that have resulted to mobility limitations, gait instability, generalized weakness, and impairment of motor control as demonstrated by the following impairment level findings: 1. Decreased strength to left knee major muscle groups 2. Impaired standing balance 3. Limitation of joint range of motion in left knee 4. Pain left knee 5. Impaired functional activity tolerance Impairments are contributing to the following functional limitations: 1. Inability to safely ambulate without assistive device 2. Increase completion time for mobility ADL performance 3. Increased fall risk 4. Impaired ability to perform stairs independently Patient is assessed as a moderate complexity based on the following: History: 74-year-old female with impairment level findings, functional limitations, and past medical history as indicated above Examination: Demonstrable impairment in strength, balance, and mobility level with underlying impairments and functional limitations as documented above Presentation: Evolving/stable Decision Making: Moderate Goals: N/A. PT evaluation and 1-2 treatment sessions only for functional mobility training using recommended AD and for HEP instruction. Plan of Care/Treatment Plan: N/A. PT evaluation and 1-2 treatment session only for functional mobility valentin devan using recommended AD and for HEP instruction. DISCHARGE RECOMMENDATIONS: Home with outpatient PT as scheduled TREATMENT CODE/TIME: 97393, [id number]/ [id number] Thank you for the opportunity to participate in the care of this patient. Brandie Nunez PT [place] [facility]
== END 2025-03-31 14:45 | disposition home or self-care (01) ==
LOC: SUR 07:27
PROVIDERS: PCP Nurse Practitioner Adult Health; Visit Provider Student in an Organized Health Care Education/Training Program
PROC: (CPT 27447; principal; 2025-03-31 09:15)
DX: M17.12 Unilateral primary osteoarthritis, left knee (principal); G89.18 Other acute postprocedural pain
CPT/HCPCS: 27447; C1776; 64447; 64450; 97110; 97162; J0665; J0666; J0690; J1100; J2003; J2371; J2401; J2405; J2704; J3475

== ENCOUNTER 2025-04-15 11:49 | Outpatient (CLI) | payer MEDICARE, SELFPAY ==
--- NOTE | 2025-04-15 08:15 | DI.RAD_ITS ---
Exam(s) XR KNEE LT 1V XR STANDING ALIGNMENT EXAM: XR STANDING ALIGNMENT CLINICAL HISTORY: 1ST POST OP S/P L TKA. TECHNIQUE: 2D digital imaging was performed. Standing AP views were performed from the pelvis through the ankles. Lateral view of the left knee COMPARISON: CR XR STANDING ALIGNMENT from 03/22/2025 CR XR KNEE LT 1V from 04/15/2025 FINDINGS: BONES: No acute fracture is present. No bony destructive lesion is seen. Leg length discrepancy: Mild overall leg length discrepancy, with the left femoral head projecting superior to the right.. JOINTS: Knees: A left total knee prosthesis has been placed. The alignment appears satisfactory. Severe degenerative changes of the lateral femoral tibial joint space of the right knee are again noted. The ankle joints are unremarkable. The hip joints are unremarkable. SOFT TISSUE: Normal. IMPRESSION: Satisfactory alignment of left knee prosthesis. Advanced degenerative changes of the right lateral femoral tibial joint. Mild overall leg length discrepancy. DATA REPOSITORY: RADIATION DOSE DELIVERED:
== END 2025-04-15 11:50 | disposition home or self-care (01) ==
LOC: DIORS 11:51
PROVIDERS: PCP Nurse Practitioner Adult Health; Visit Provider Physician Assistant
DX: Z47.1 Aftercare following joint replacement surgery (principal); Z96.652 Presence of left artificial knee joint; M25.562 Pain in left knee
CPT/HCPCS: 99024; 73560; 77073

== ENCOUNTER → 2025-05-13 14:51 | Outpatient (BNVA) | payer MEDICARE, SELFPAY | PROVIDERS: PCP Nurse Practitioner Adult Health; Referring Provider Nurse Practitioner Adult Health; Visit Provider Physician Assistant | DX: Z47.1 Aftercare following joint replacement surgery (principal); Z96.652 Presence of left artificial knee joint | CPT/HCPCS: 99024 ==

== ENCOUNTER → 2025-07-01 10:14 | Outpatient (BNVA) | payer MEDICARE, SELFPAY | PROVIDERS: PCP Nurse Practitioner Adult Health; Referring Provider Nurse Practitioner Adult Health; Visit Provider Physician Assistant | DX: Z47.1 Aftercare following joint replacement surgery (principal); Z96.652 Presence of left artificial knee joint | CPT/HCPCS: 99212 ==

== ENCOUNTER → 2025-07-15 02:27 | Outpatient (CLI) | payer MEDICARE, SELFPAY ==
--- NOTE | 2025-07-15 14:32 | DI.DEXA_ITS ---
Exam(s) XR DEXA BONE DENSITY W/WO SYEDA EXAM: XR DEXA BONE DENSITY W/WO SYEDA CLINICAL HISTORY: LUMBAR COMPRESSION FX S32.000A H/O OSTEOPENIA Z87.39 TECHNIQUE: [employer] C densitometer analysis of left hip, lumbar spine and left forearm. Lateral survey image of the thoracic and lumbar spine. COMPARISON: CR XR DEXA BONE DENSITY W/WO SYEDA from 05/31/2020 CR XR LUMBAR SPINE COMPLETE from 11/09/2024 FINDINGS: Lateral view of the thoracic and lumbar spine shows a mild compression fracture L2. Bone mineral density measurements of the lumbar spine correspond to a total T- score of -0.5, in the normal range. This represents a 5.8 percent increase from 2019. Bone mineral density measurements of the left hip correspond to a total T-score of -1.3. This represents a 4.9 percent increase from 2020. The femoral neck T-score is -2.0, in the osteopenic range. Theleft forearm bone mineral density measurements correspond to a T-score of the distal 3rd of -1.7, in the osteopenic range. This represents a 4.2 percent decrease from 2020. IMPRESSION: Normal bone density of the spine. Osteopenia of the hip and forearm.
== END ==
LOC: DI 02:28
PROVIDERS: PCP Nurse Practitioner Adult Health; Visit Provider Nurse Practitioner Family
DX: S32.000A Wedge compression fracture of unspecified lumbar vertebra, initial encounter for closed fracture (principal); Z87.39 Personal history of other diseases of the musculoskeletal system and connective tissue; X58.XXXA Exposure to other specified factors, initial encounter; M85.88 Other specified disorders of bone density and structure, other site
CPT/HCPCS: 77080